=== PATIENT | female | born 1955 | race African-American/Black ===

== ENCOUNTER 2019-03-24 07:38 | Emergency (ER) | payer OTHER, MEDICAID ==
[~2019-03-24] VITALS: Ht 160 cm; Wt 75.0 kg
[2019-03-24] MEDS ORDERED: SODIUM CHLORIDE 0.9% 1,000 ML IV ONE (08:24)
[2019-03-24 08:55] LABS: EOSINOPHILS % 1.4 % (0.0-5.0); HEMATOCRIT. 37.5 % (36.0-48.0); HEMOGLOBIN. 12.3 g/dL (12.0-16.0); LYMPHOCYTES % 27.5 % (20.0-50.0); MEAN CORPUSCULAR HEMOGLOBIN 30.9 pg (28.0-32.0); MEAN PLATELET VOLUME 8.2 fl (7.4-10.4); MONOCYTES % 6.7 % (2.0-8.0); NEUTROPHILS % 63.4 % (40.0-76.0); PLATELET 229 x1000/uL (130-400); RED BLOOD CELL COUNT 3.99 mill/uL (4.2-5.4); RED CELL DISTRIBUTION WIDTH 14.7 % (11.6-14.6)
[2019-03-24 08:56] LABS: CHLORIDE 108 mEq/L (98-107)
[2019-03-24] MEDS ORDERED: FUROSEMIDE 20MG/2ML VIAL IVP ONE ×2 (10:30→11:00)
[2019-03-24 10:50] VITALS: BP 164/94
== END 2019-03-24 11:37 | disposition left against medical advice (07) ==
LOC: ER 07:38 → EDBEDREQ 10:37 → EDBEDREQTM 10:39 → ENRESERV 10:45 → CANRESERV 10:45 → ER 11:37
DX: I21.4 Non-ST elevation (NSTEMI) myocardial infarction (principal); I11.9 Hypertensive heart disease without heart failure; I50.9 Heart failure, unspecified; H53.8 Other visual disturbances; E03.9 Hypothyroidism, unspecified
CPT/HCPCS: 36415; 71045; 80053; 83880; 84484; 85025; 93005; 96361; 96374; 99284; J1940; J7030

== ENCOUNTER 2019-06-04 00:18 | Emergency (ER) | payer OTHER, MEDICAID ==
[~2019-06-04] VITALS: Ht 160 cm; Wt 75.0 kg
[2019-06-04] MEDS ORDERED: KETOROLAC 30MG/ML VIAL IV STA (01:52)
[2019-06-04] MEDS ORDERED: ONDANSETRON HCL 4MG/2ML INJ IV STA (01:52)
[2019-06-04 02:18] LABS: CHLORIDE 110 mEq/L (98-107)
[2019-06-04 02:20] LABS: BASOPHILS % 1.1 % (0.0-2.0); HEMATOCRIT. 38.5 % (36.0-48.0); HEMOGLOBIN. 12.8 g/dL (12.0-16.0); LYMPHOCYTES % 15.3 % (20.0-50.0); MEAN CORPUSCULAR HEMOGLOBIN 31.2 pg (28.0-32.0); MEAN CORPUSCULAR VOLUME 94.1 fL (81.0-99.0); MEAN PLATELET VOLUME 8.3 fl (7.4-10.4); MONOCYTES % 5.5 % (2.0-8.0); NEUTROPHILS % 77.1 % (40.0-76.0); PLATELET 230 x1000/uL (130-400); RED BLOOD CELL COUNT 4.08 mill/uL (4.2-5.4); RED CELL DISTRIBUTION WIDTH 15.4 % (11.6-14.6)
[2019-06-04 04:56] VITALS: BP 152/80
== END 2019-06-04 04:59 | disposition home or self-care (01) ==
LOC: ER 01:37
DX: M54.12 Radiculopathy, cervical region (principal)
CPT/HCPCS: 36415; 71045; 72125; 80053; 84484; 85025; 93005; 96374; 96375; 99284; J1885; J2405

== ENCOUNTER 2019-07-01 07:42 | Emergency (ER) | payer OTHER, MEDICAID ==
[~2019-07-01] VITALS: Ht 160 cm; Wt 72.0 kg
[2019-07-01] MEDS ORDERED: KETOROLAC 60MG/2ML VIAL IM ONE (08:30)
[2019-07-01 08:35] VITALS: BP 157/82
== END 2019-07-01 08:54 | disposition home or self-care (01) ==
LOC: ER 07:42
DX: M54.5 Low back pain (principal); I11.0 Hypertensive heart disease with heart failure; E78.00 Pure hypercholesterolemia, unspecified; I25.2 Old myocardial infarction; E03.9 Hypothyroidism, unspecified
CPT/HCPCS: 96372; 99283; J1885

== ENCOUNTER 2019-07-29 23:27 | Emergency (ER) | payer OTHER, MEDICAID ==
[~2019-07-29] VITALS: Ht 160 cm; Wt 75.0 kg
[2019-07-30] MEDS ORDERED: KETOROLAC 60MG/2ML VIAL IM ONE (04:45)
[2019-07-30 05:38] VITALS: BP 155/81
== END 2019-07-30 05:49 | disposition home or self-care (01) ==
LOC: ER 23:27
DX: M54.5 Low back pain (principal); G89.29 Other chronic pain
CPT/HCPCS: 96372; 99283; J1885

== ENCOUNTER 2019-08-22 04:18 | Inpatient (IN) | payer MEDICARE, MEDICAID ==
[~2019-08-22] VITALS: Ht 160 cm; Wt 75.7 kg
[2019-08-22] VITALS (9 sets, daily range): BP systolic 128–164; BP diastolic 65–82
[2019-08-22] MEDS ORDERED: ONDANSETRON HCL 4MG/2ML INJ IV STA (04:31)
[2019-08-22] MEDS ORDERED: FUROSEMIDE 40MG/4ML VIAL IV ONE (04:45)
[2019-08-22] MEDS ORDERED: NITROGLYCERIN OINT 1GM/INCH UDPKT TD ONE (04:45)
[2019-08-22 05:36] LABS: BASOPHILS % 0.7 % (0.0-2.0); EOSINOPHILS % 1.1 % (0.0-5.0); HEMATOCRIT. 35.1 % (36.0-48.0); HEMOGLOBIN. 11.5 g/dL (12.0-16.0); LYMPHOCYTES % 11.8 % (20.0-50.0); MEAN CORPUSCULAR HEMOGLOBIN 31.2 pg (28.0-32.0); MEAN CORPUSCULAR VOLUME 94.7 fL (81.0-99.0); MEAN PLATELET VOLUME 8.4 fl (7.4-10.4); MONOCYTES % 4.1 % (2.0-8.0); NEUTROPHILS % 82.3 % (40.0-76.0); PLATELET 281 x1000/uL (130-400); RED BLOOD CELL COUNT 3.71 mill/uL (4.2-5.4); RED CELL DISTRIBUTION WIDTH 15.2 % (11.6-14.6)
[2019-08-22 05:45] LABS: CHLORIDE 112 mEq/L (98-107)
[2019-08-22] MEDS ORDERED: DOCUSATE SODIUM 100MG CAPSULE PO PRN (10:00)
[2019-08-22] MEDS ORDERED: TRAMADOL 50MG TABLET PO PRN (10:00)
[2019-08-22] MEDS ORDERED: MAGNESIUM/ALUMINUM HYDROXIDE/SIMETHICONE 30ML UDC PO PRN (10:00)
[2019-08-22] MEDS ORDERED: ACETAMINOPHEN 325MG TABLET PO PRN (10:00)
[2019-08-22] MEDS ORDERED: MORPHINE SULFATE 2 MG/ML CPJ (NOT FOR IM USE) IV PRN (10:00)
[2019-08-22] MEDS ORDERED: CLONIDINE 0.1MG TABLET PO PRN (10:00)
[2019-08-22] MEDS ORDERED: ONDANSETRON HCL 4MG/2ML INJ IV PRN (10:00)
[2019-08-22] MEDS ORDERED: NITROGLYCERIN 0.4MG TABLET SL SL PRN (10:00)
[2019-08-22] MEDS ORDERED: GUAIFENESIN 200MG/10ML SUGAR FREE UDC PO PRN (10:00)
[2019-08-22] MEDS ORDERED: LORAZEPAM 0.5MG TABLET PO PRN (10:00)
[2019-08-22] MEDS: LISINOPRIL 20MG TABLET PO SCH ×2 (13:09→22:02)
[2019-08-22] MEDS: ASPIRIN 325MG EC TABLET PO SCH (13:09)
[2019-08-22] MEDS: METOPROLOL TARTRATE 25MG TABLET PO SCH ×2 (13:10→18:28)
[2019-08-22] MEDS: ENOXAPARIN 80MG/0.8ML SYR SUBCUT SCH ×2 (13:12→22:04)
[2019-08-22] MEDS ORDERED: INFLUENZA VIRUS VACCINE(AFLURIA) 0.5ML SYR IM ONE (15:00)
[2019-08-22] MEDS: AMLODIPINE 2.5MG TABLET PO SCH ×2 (15:30→22:02)
[2019-08-22 16:24] LABS: INR 1.1; PROTHROMBIN TIME 11.7 sec (9.6-11.0)
[2019-08-22] MEDS: POTASSIUM CHLORIDE 20MEQ TABLET SR PO SCH (18:30)
[2019-08-22] MEDS: FUROSEMIDE 40MG/4ML VIAL IVP SCH (18:32)
[2019-08-22] MEDS: SPIRONOLACTONE 25MG TABLET PO SCH (18:33)
[2019-08-22] MEDS ORDERED: NITR0.4T49 SL (19:48)
[2019-08-22] MEDS ORDERED: LOSA25TA26 MT (19:48)
[2019-08-22] MEDS ORDERED: ATOR10TA MT (19:48)
[2019-08-22] MEDS ORDERED: ASPI-986 MT (19:48)
[2019-08-22] MEDS ORDERED: DEXT15SY3 PO (19:48)
[2019-08-22] MEDS ORDERED: LEVO25TA2 MT (19:48)
[2019-08-22] MEDS ORDERED: ZOLPIDEM TARTRATE 5MG TABLET PO PRN (21:00)
[2019-08-22] MEDS: FAMOTIDINE 40MG TABLET PO SCH (22:02)
[2019-08-22] MEDS: IPRATROPIUM/ALBUTEROL 0.5-3(2.5)MG/3ML NEB NEB PRN (22:09)
[2019-08-23] VITALS (16 sets, daily range): BP systolic 116–149; BP diastolic 56–101
[2019-08-23 00:50] LABS: CREATINE KINASE MB FRACTION 1.5 ng/mL (0.5-3.6)
[2019-08-23] MEDS: IPRATROPIUM/ALBUTEROL 0.5-3(2.5)MG/3ML NEB NEB PRN ×2 (01:43→08:16)
[2019-08-23] MEDS: FUROSEMIDE 40MG/4ML VIAL IVP SCH ×2 (05:57→18:34)
[2019-08-23] MEDS: SPIRONOLACTONE 25MG TABLET PO SCH ×2 (05:57→18:34)
[2019-08-23 08:21] LABS: *AMPHETAMINES SCREEN URINE NEGATIVE (NEGATIVE); *BARBITURATES SCREEN URINE NEGATIVE (NEGATIVE); *BENZODIAZEPINES SCREEN URINE NEGATIVE (NEGATIVE); *COCAINE SCREEN URINE NEGATIVE (NEGATIVE); CANNABINOID URINE SCREEN NEGATIVE (NEGATIVE); METHADONE URINE SCREEN NEGATIVE (NEGATIVE); OPIATES URINE SCREEN NEGATIVE (NEGATIVE); PHENCYCLIDINE URINE SCREEN NEGATIVE (NEGATIVE)
[2019-08-23] MEDS: POTASSIUM CHLORIDE 20MEQ TABLET SR PO SCH (08:36)
[2019-08-23] MEDS: AMLODIPINE 2.5MG TABLET PO SCH ×2 (08:36→21:00)
[2019-08-23] MEDS: FAMOTIDINE 40MG TABLET PO SCH ×2 (08:36→21:53)
[2019-08-23] MEDS: ENOXAPARIN 80MG/0.8ML SYR SUBCUT SCH ×2 (08:40→21:59)
[2019-08-23] MEDS: ASPIRIN 325MG EC TABLET PO SCH (09:17)
[2019-08-23 09:38] LABS: CREATINE KINASE MB FRACTION 1.5 ng/mL (0.5-3.6)
[2019-08-23 09:48] LABS: BG BASE EXCESS 0.3 mmol/L (-2.0-2.0); BG BILEVEL POS AIRWAY PRESSURE 15/5; BG CARBOXYHEMOGLOBIN 0.3 % (0.5-1.5); BG DEOXYHEMOGLOBIN 0.5 % (0.0-5.0); BG FRACTION INSPIRED OXYGEN 100; BG HCO3 ACT 23.3 mmol/L (22.0-26.0); BG METHEMOGLOBIN 0.1 % (0.0-1.5); BG OXYGEN SATURATION 99.5 % (92.0-98.5); BG OXYHEMOGLOBIN 99.1 % (94.0-97.0); BG PCO2 32.8 mmHg (35.0-45.0); BG PO2 387.6 mmHg (75.0-100.0); BG SAMPLE SITE RIGHT RADIAL; BG TOTAL HEMOGLOBIN 12.6 g/dL (12.0-18.0); BG VENT MODE MASK - BIPAP; BG VENT RATE 16 set
[2019-08-23] MEDS: LISINOPRIL 20MG TABLET PO SCH (14:17)
[2019-08-23] MEDS: METOPROLOL TARTRATE 25MG TABLET PO SCH ×2 (17:28→21:00)
[2019-08-23] MEDS: BENZONATATE 100MG CAPSULE PO SCH (18:33)
[2019-08-24] VITALS (13 sets, daily range): BP systolic 109–159; BP diastolic 48–89
[2019-08-24] MEDS: BENZONATATE 100MG CAPSULE PO SCH ×3 (02:27→18:14)
[2019-08-24] MEDS: FUROSEMIDE 40MG/4ML VIAL IVP SCH ×3 (06:17→18:24)
[2019-08-24] MEDS: SPIRONOLACTONE 25MG TABLET PO SCH ×2 (06:18→18:14)
[2019-08-24] MEDS: ENOXAPARIN 80MG/0.8ML SYR SUBCUT SCH ×2 (09:00→21:00)
[2019-08-24] MEDS: ASPIRIN 325MG EC TABLET PO SCH (09:29)
[2019-08-24] MEDS: FAMOTIDINE 40MG TABLET PO SCH ×2 (09:33→21:00)
[2019-08-24] MEDS: AMLODIPINE 2.5MG TABLET PO SCH ×2 (09:34→21:00)
[2019-08-24] MEDS: METOPROLOL TARTRATE 25MG TABLET PO SCH ×2 (09:36→21:00)
[2019-08-24] MEDS: POTASSIUM CHLORIDE 20MEQ TABLET SR PO SCH (12:37)
[2019-08-24] MEDS: LISINOPRIL 20MG TABLET PO SCH ×3 (12:37→21:00)
[2019-08-24 14:29] LABS: EOSINOPHILS % 2.5 % (0.0-5.0); HEMATOCRIT. 39.9 % (36.0-48.0); HEMOGLOBIN. 13.2 g/dL (12.0-16.0); LYMPHOCYTES % 17.8 % (20.0-50.0); MEAN CORPUSCULAR HEMOGLOBIN 30.9 pg (28.0-32.0); MEAN CORPUSCULAR VOLUME 93.3 fL (81.0-99.0); MEAN PLATELET VOLUME 8.8 fl (7.4-10.4); NEUTROPHILS % 70.7 % (40.0-76.0); PLATELET 361 x1000/uL (130-400); RED BLOOD CELL COUNT 4.28 mill/uL (4.2-5.4); RED CELL DISTRIBUTION WIDTH 14.8 % (11.6-14.6)
[2019-08-24 14:45] LABS: CHLORIDE 101 mEq/L (98-107)
[2019-08-25] VITALS (10 sets, daily range): BP systolic 127–176; BP diastolic 60–88
[2019-08-25] MEDS: BENZONATATE 100MG CAPSULE PO SCH ×2 (01:06→10:29)
[2019-08-25] MEDS: SPIRONOLACTONE 25MG TABLET PO SCH (06:21)
[2019-08-25] MEDS: POTASSIUM CHLORIDE 20MEQ TABLET SR PO SCH (08:43)
[2019-08-25] MEDS: METOPROLOL TARTRATE 25MG TABLET PO SCH (08:43)
[2019-08-25] MEDS: ASPIRIN 325MG EC TABLET PO SCH (08:43)
[2019-08-25] MEDS: AMLODIPINE 2.5MG TABLET PO SCH (08:43)
[2019-08-25] MEDS: FAMOTIDINE 40MG TABLET PO SCH (08:44)
[2019-08-25] MEDS: LISINOPRIL 20MG TABLET PO SCH (08:44)
[2019-08-25] MEDS: ENOXAPARIN 80MG/0.8ML SYR SUBCUT SCH (08:46)
[2019-08-25] MEDS ORDERED: ATORVASTATIN CALCIUM 40MG TABLET PO SCH (11:20)
== END 2019-08-25 12:17 | disposition home or self-care (01) | DRG 280 ==
LOC: ER 04:18 → 3WST 05:21 → ENRESERV 10:14
PROVIDERS: ADMIT Internal Medicine; ATTEND Internal Medicine
PROC: 5A09357 Assistance with Respiratory Ventilation, Less than 24 Consecutive Hours, Continuous Positive Airway Pressure (ICD-10-PCS; principal; 2019-08-22)
DX: I21.4 Non-ST elevation (NSTEMI) myocardial infarction (principal); I50.43 Acute on chronic combined systolic (congestive) and diastolic (congestive) heart failure; J96.00 Acute respiratory failure, unspecified whether with hypoxia or hypercapnia; E44.1 Mild protein-calorie malnutrition; J44.1 Chronic obstructive pulmonary disease with (acute) exacerbation; I31.3 Pericardial effusion (noninflammatory); D63.8 Anemia in other chronic diseases classified elsewhere; E78.5 Hyperlipidemia, unspecified; R74.0 Nonspecific elevation of levels of transaminase and lactic acid dehydrogenase [LDH]; E03.9 Hypothyroidism, unspecified; E78.00 Pure hypercholesterolemia, unspecified; E83.51 Hypocalcemia; I11.0 Hypertensive heart disease with heart failure; I25.10 Atherosclerotic heart disease of native coronary artery without angina pectoris; Z60.2 Problems related to living alone; Z79.899 Other long term (current) drug therapy; Z68.29 Body mass index [BMI] 29.0-29.9, adult; Z91.012 Allergy to eggs; Z87.891 Personal history of nicotine dependence; Z91.11 Patient's noncompliance with dietary regimen; Z91.14 Patient's other noncompliance with medication regimen; Z79.82 Long term (current) use of aspirin
CPT/HCPCS: 36415; 36600; 71045; 80048; 80053; 80061; 80305; 82375; 82550; 82553; 82607; 82746; 82805; 83036; 83540; 83550; 83605; 83735; 83880; 84484; 85025; 85379; 87804; 93005; 93306; 93970; 94640; 97162; 97166; 99285; J1650; J1940; J2405

== ENCOUNTER 2019-08-29 02:13 | Emergency (ER) | payer MEDICARE, MEDICAID ==
[~2019-08-29] VITALS: Ht 160 cm; Wt 73.0 kg
[~2019-08-29 02:13] MED LIST: ASPI-986 MT; ATOR10TA MT; DEXT15SY3 PO; LEVO25TA2 MT; LOSA25TA26 MT; NITR0.4T49 SL
[2019-08-29 02:24] VITALS: BP 157/70
[2019-08-29] MEDS ORDERED: MORPHINE SULFATE 4 MG/ML CPJ (NOT FOR IM USE) IV STA (06:30)
[2019-08-29] MEDS ORDERED: ONDANSETRON HCL 4MG/2ML INJ IV STA (06:30)
== END 2019-08-29 07:00 | disposition left against medical advice (07) ==
LOC: ER 02:13
DX: R10.9 Unspecified abdominal pain (principal)
CPT/HCPCS: 99283

== ENCOUNTER 2019-10-05 20:42 | Emergency (ER) | payer MEDICARE, MEDICAID ==
[~2019-10-05] VITALS: Ht 162.6 cm; Wt 73.0 kg
[2019-10-05] MEDS ORDERED: ALBUTEROL (0.083%) 2.5MG/3ML NEB HHN STA (22:53)
[2019-10-05] MEDS ORDERED: IPRATROPIUM BROMIDE (0.02%) 0.5MG/2.5ML NEB HHN STA (22:53)
[2019-10-05] MEDS ORDERED: FUROSEMIDE 40MG/4ML VIAL IV ONE (23:00)
[2019-10-06 00:17] LABS: EOSINOPHILS % 0.4 % (0.0-5.0); HEMATOCRIT. 37.7 % (36.0-48.0); HEMOGLOBIN. 12.6 g/dL (12.0-16.0); LYMPHOCYTES % 13.9 % (20.0-50.0); MEAN CORPUSCULAR HEMOGLOBIN 31.7 pg (28.0-32.0); MEAN CORPUSCULAR VOLUME 94.7 fL (81.0-99.0); MONOCYTES % 6.8 % (2.0-8.0); NEUTROPHILS % 77.9 % (40.0-76.0); PLATELET 279 x1000/uL (130-400); RED BLOOD CELL COUNT 3.98 mill/uL (4.2-5.4); RED CELL DISTRIBUTION WIDTH 15.5 % (11.6-14.6)
[2019-10-06 00:26] LABS: CHLORIDE 109 mEq/L (98-107)
[2019-10-06 01:01] VITALS: BP 157/101
[2019-10-06] MEDS ORDERED: ASPIRIN 81MG TABLET PO ONE (01:15)
== END 2019-10-06 03:16 | disposition left against medical advice (07) ==
LOC: ER 20:42
DX: R06.02 Shortness of breath (principal); I10 Essential (primary) hypertension; E03.9 Hypothyroidism, unspecified; Z79.82 Long term (current) use of aspirin; Z79.899 Other long term (current) drug therapy
CPT/HCPCS: 36415; 71045; 71250; 80053; 83880; 84484; 85025; 93005; 94640; 96374; 99285; J1940

== ENCOUNTER 2019-10-25 23:46 | Emergency (ER) | payer MEDICARE, MEDICAID ==
[~2019-10-25] VITALS: Ht 160 cm; Wt 72.0 kg
[2019-10-26] MEDS ORDERED: ALBUTEROL (0.083%) 2.5MG/3ML NEB HHN STA (01:50)
[2019-10-26] MEDS ORDERED: PREDNISONE 20MG TABLET PO STA (01:50)
[2019-10-26] MEDS ORDERED: IPRATROPIUM BROMIDE (0.02%) 0.5MG/2.5ML NEB HHN STA (01:50)
[2019-10-26 06:00] VITALS: BP 142/80
== END 2019-10-26 07:02 | disposition home or self-care (01) ==
LOC: ER 23:46
DX: J44.9 Chronic obstructive pulmonary disease, unspecified (principal); R55 Syncope and collapse; E03.9 Hypothyroidism, unspecified; I11.0 Hypertensive heart disease with heart failure; I50.9 Heart failure, unspecified; Z91.012 Allergy to eggs; Z79.899 Other long term (current) drug therapy; Z86.718 Personal history of other venous thrombosis and embolism; Z98.890 Other specified postprocedural states; W18.39XA Other fall on same level, initial encounter; Y93.89 Activity, other specified; Y92.89 Other specified places as the place of occurrence of the external cause; Y99.8 Other external cause status
CPT/HCPCS: 94640; 99284

== ENCOUNTER 2019-10-27 12:52 | Emergency (ER) | payer MEDICARE, MEDICAID ==
[~2019-10-27] VITALS: Ht 160 cm; Wt 72.0 kg
[2019-10-27] MEDS ORDERED: METHYLPREDNISOLONE SOD SUCC 125 MG/2 ML VIAL IV STA (13:34)
[2019-10-27] MEDS ORDERED: ALBUTEROL (0.083%) 2.5MG/3ML NEB HHN STA (13:34)
[2019-10-27] MEDS ORDERED: IPRATROPIUM BROMIDE (0.02%) 0.5MG/2.5ML NEB HHN STA (13:34)
[2019-10-27 14:16] LABS: BASOPHILS % 1.3 % (0.0-2.0); EOSINOPHILS % 0.7 % (0.0-5.0); HEMOGLOBIN. 11.2 g/dL (12.0-16.0); LYMPHOCYTES % 11.3 % (20.0-50.0); MEAN CORPUSCULAR HEMOGLOBIN 31.4 pg (28.0-32.0); MEAN CORPUSCULAR VOLUME 94.9 fL (81.0-99.0); MEAN PLATELET VOLUME 8.3 fl (7.4-10.4); MONOCYTES % 5.9 % (2.0-8.0); NEUTROPHILS % 80.8 % (40.0-76.0); PLATELET 246 x1000/uL (130-400); RED BLOOD CELL COUNT 3.58 mill/uL (4.2-5.4)
[2019-10-27 14:19] LABS: CHLORIDE 114 mEq/L (98-107)
[2019-10-27 14:22] LABS: INR 1.1
[2019-10-27] MEDS ORDERED: FUROSEMIDE 20MG/2ML VIAL IVP ONE (15:00)
[2019-10-27] MEDS ORDERED: ASPIRIN 325MG EC TABLET PO ONE (15:00)
[2019-10-27 15:45] VITALS: BP 169/94
== END 2019-10-27 16:35 | disposition left against medical advice (07) ==
LOC: ER 13:33 → CANBEDREQ 16:44
DX: I21.4 Non-ST elevation (NSTEMI) myocardial infarction (principal); I11.0 Hypertensive heart disease with heart failure; I50.9 Heart failure, unspecified; D64.9 Anemia, unspecified; I21.9 Acute myocardial infarction, unspecified; J44.9 Chronic obstructive pulmonary disease, unspecified; Z91.012 Allergy to eggs; Z79.82 Long term (current) use of aspirin; Z79.899 Other long term (current) drug therapy
CPT/HCPCS: 36415; 71045; 80053; 83605; 83880; 84484; 85025; 85610; 93005; 94640; 96374; 96375; 99285; J1940; J2930

== ENCOUNTER 2019-10-29 14:00 | Emergency (ER) | payer MEDICARE, MEDICAID ==
[~2019-10-29] VITALS: Ht 167.6 cm; Wt 75.0 kg
[2019-10-29 17:26] LABS: BASOPHILS % 1.3 % (0.0-2.0); EOSINOPHILS % 0.6 % (0.0-5.0); HEMATOCRIT. 37.6 % (36.0-48.0); HEMOGLOBIN. 12.4 g/dL (12.0-16.0); LYMPHOCYTES % 14.2 % (20.0-50.0); MEAN CORPUSCULAR HEMOGLOBIN 30.9 pg (28.0-32.0); MEAN CORPUSCULAR VOLUME 93.9 fL (81.0-99.0); MEAN PLATELET VOLUME 8.7 fl (7.4-10.4); MONOCYTES % 6.2 % (2.0-8.0); NEUTROPHILS % 77.7 % (40.0-76.0); PLATELET 261 x1000/uL (130-400); RED CELL DISTRIBUTION WIDTH 16.3 % (11.6-14.6)
[2019-10-29 17:35] LABS: CHLORIDE 113 mEq/L (98-107)
[2019-10-29 17:49] LABS: CLARITY URINE CLEAR (CLEAR); COLOR URINE DARK YELLOW (YELLOW); KETONES URINE NEGATIVE (NEGATIVE); LEUKOCYTE ESTERASE URINE NEGATIVE (NEGATIVE); NITRITE URINE NEGATIVE (NEGATIVE); OCCULT BLOOD URINE NEGATIVE (NEGATIVE); PH URINE 5.5 (4.5-8.0); PROTEIN URINE 2+ (NEGATIVE)
[2019-10-29] MEDS ORDERED: ENOXAPARIN 100MG/ML SYR SUBCUT ONE (19:00)
[2019-10-29] MEDS ORDERED: DOCUSATE SODIUM 100MG CAPSULE PO PRN (19:00)
[2019-10-29] MEDS ORDERED: LORAZEPAM 0.5MG TABLET PO PRN (19:00)
[2019-10-29] MEDS ORDERED: ONDANSETRON HCL 4MG/2ML INJ IV PRN (19:00)
[2019-10-29] MEDS ORDERED: ASPIRIN 81MG TABLET PO ONE (19:00)
[2019-10-29] MEDS ORDERED: CLONIDINE 0.1MG TABLET PO PRN (19:00)
[2019-10-29] MEDS ORDERED: GUAIFENESIN 200MG/10ML SUGAR FREE UDC PO PRN (19:00)
[2019-10-29] MEDS ORDERED: FUROSEMIDE 40MG/4ML VIAL IV ONE (19:00)
[2019-10-29] MEDS ORDERED: NITROGLYCERIN 0.4MG TABLET SL SL PRN (19:00)
[2019-10-29] MEDS ORDERED: MORPHINE SULFATE 2 MG/ML CPJ (NOT FOR IM USE) IV PRN (19:00)
[2019-10-29] MEDS ORDERED: ZOLPIDEM TARTRATE 5MG TABLET PO PRN ×2 (19:00→21:00)
[2019-10-29] MEDS ORDERED: TRAMADOL 50MG TABLET PO PRN (19:00)
[2019-10-29] MEDS ORDERED: MAGNESIUM/ALUMINUM HYDROXIDE/SIMETHICONE 30ML UDC PO PRN (19:00)
[2019-10-29] MEDS ORDERED: IPRATROPIUM/ALBUTEROL 0.5-3(2.5)MG/3ML NEB NEB PRN (19:00)
[2019-10-29] MEDS ORDERED: ACETAMINOPHEN 325MG TABLET PO PRN ×2 (19:00)
[2019-10-29 19:40] LABS: T4 FREE 0.41 ng/dL (0.76-1.46)
[2019-10-29] MEDS ORDERED: ENOXAPARIN 80MG/0.8ML SYR SUBCUT NR (20:30)
[2019-10-29] MEDS ORDERED: FUROSEMIDE 40MG/4ML VIAL IVP SCH (21:00)
[2019-10-29] MEDS ORDERED: ATORVASTATIN CALCIUM 10MG TABLET PO SCH (21:45)
[2019-10-29] MEDS ORDERED: SPIRONOLACTONE 25MG TABLET PO SCH (21:46)
[2019-10-30] MEDS ORDERED: CARVEDILOL 3.125 MG TABLET PO SCH (06:00)
[2019-10-30 06:43] LABS: CREATINE KINASE MB FRACTION 1.8 ng/mL (0.5-3.6)
[2019-10-30] MEDS ORDERED: LEVOTHYROXINE SODIUM 112MCG TABLET PO SCH (07:50)
[2019-10-30] MEDS ORDERED: ASPIRIN 325MG EC TABLET PO SCH (09:00)
[2019-10-30] MEDS ORDERED: SPIRONOLACTONE 25MG TABLET PO SCH (09:00)
[2019-10-30] MEDS ORDERED: ENOXAPARIN 60MG/0.6ML SYR SUBCUT SCH (09:00)
[2019-10-30] MEDS ORDERED: LOSARTAN POTASSIUM 25 MG TABLET PO SCH (09:00)
[2019-10-30 10:04] LABS: *BARBITURATES SCREEN URINE NEGATIVE (NEGATIVE); *BENZODIAZEPINES SCREEN URINE NEGATIVE (NEGATIVE); *COCAINE SCREEN URINE NEGATIVE (NEGATIVE)
[2019-10-30 10:05] LABS: *AMPHETAMINES SCREEN URINE NEGATIVE (NEGATIVE); CANNABINOID URINE SCREEN NEGATIVE (NEGATIVE); OPIATES URINE SCREEN NEGATIVE (NEGATIVE); PHENCYCLIDINE URINE SCREEN NEGATIVE (NEGATIVE)
[2019-10-30 11:16] VITALS: BP 136/90
[2019-10-30] MEDS ORDERED: ATORVASTATIN CALCIUM 40MG TABLET PO SCH (21:00)
[2019-10-30] MEDS ORDERED: ATORVASTATIN CALCIUM 10MG TABLET PO SCH (21:00)
[2019-10-31 16:06] LABS: METHADONE URINE SCREEN NEGATIVE (NEGATIVE)
== END 2019-10-30 11:15 | disposition left against medical advice (07) ==
LOC: ER 14:00 → SUPCPDRO 18:58 → EDBEDREQSVC 19:02 → EDBEDREQTM 19:02 → EDBEDREQ 19:02 → CANBEDREQ 10-30 11:02 → ER 10-30 11:15
DX: I50.9 Heart failure, unspecified (principal); I42.9 Cardiomyopathy, unspecified; Z91.012 Allergy to eggs; Z79.899 Other long term (current) drug therapy; Z79.82 Long term (current) use of aspirin
CPT/HCPCS: 36415; 71045; 80053; 80061; 80305; 81003; 82550; 82553; 83036; 83880; 84439; 84443; 84484; 85025; 93005; 93970; 99285; J1650; J1940

== ENCOUNTER 2020-03-09 06:26 | Inpatient (IN) | payer MEDICARE, MEDICAID ==
[~2020-03-09] VITALS: Ht 167.6 cm; Wt 71.2 kg
[2020-03-09] MEDS ORDERED: ONDANSETRON HCL 4MG/2ML INJ IV STA (06:52)
[2020-03-09] MEDS ORDERED: MORPHINE SULFATE 4 MG/ML CPJ (NOT FOR IM USE) IV STA (06:52)
[2020-03-09 07:16] LABS: BASOPHILS % 1.2 % (0.0-2.0); EOSINOPHILS % 0.1 % (0.0-5.0); HEMATOCRIT. 39.8 % (36.0-48.0); LYMPHOCYTES % 14.1 % (20.0-50.0); MEAN CORPUSCULAR HEMOGLOBIN 31.4 pg (28.0-32.0); MEAN CORPUSCULAR VOLUME 96.4 fL (81.0-99.0); MEAN PLATELET VOLUME 9.4 fl (7.4-10.4); MONOCYTES % 5.5 % (2.0-8.0); NEUTROPHILS % 79.1 % (40.0-76.0); PLATELET 170 x1000/uL (130-400); RED BLOOD CELL COUNT 4.13 mill/uL (4.2-5.4)
[2020-03-09 07:21] LABS: CHLORIDE 113 mEq/L (98-107)
[2020-03-09 07:24] LABS: INR 1.2; PROTHROMBIN TIME 12.9 sec (9.6-11.0)
[2020-03-09] MEDS ORDERED: HYDROCODONE/ACETAMINOPHEN 10/325MG TABLET PO PRN (10:15)
[2020-03-09] MEDS ORDERED: FUROSEMIDE 40MG/4ML VIAL IVP ONE (10:15)
[2020-03-09] MEDS ORDERED: ONDANSETRON HCL 4MG/2ML INJ IV PRN (10:15)
[2020-03-09] MEDS ORDERED: ACETAMINOPHEN 325MG TABLET PO PRN (10:15)
[2020-03-09 11:00] VITALS: BP 149/94
[2020-03-09 12:00] VITALS: BP 149/94
[2020-03-09] MEDS ORDERED: FURO40TA5 PO (12:00)
[2020-03-09] MEDS ORDERED: FAMO-133 MT (12:00)
[2020-03-09] MEDS ORDERED: SPIR25TA6 MT (12:00)
[2020-03-09] MEDS ORDERED: CARV6.2548 MT (12:00)
[2020-03-09] MEDS ORDERED: SACU1TAB MT (12:00)
[2020-03-09] MEDS: ENOXAPARIN 40MG/0.4ML SYR SUBCUT SCH (12:59)
[2020-03-09] MEDS: POTASSIUM CHLORIDE 20MEQ TABLET SR PO SCH (13:00)
[2020-03-09] MEDS: LEVOTHYROXINE SODIUM 50MCG TABLET PO SCH (15:16)
[2020-03-09 16:00] VITALS: BP 143/85
[2020-03-09] MEDS: FUROSEMIDE 40MG/4ML VIAL IVP SCH (16:28)
[2020-03-09] MEDS: MORPHINE SULFATE 2 MG/ML CPJ (NOT FOR IM USE) IV PRN ×2 (16:54→21:05)
[2020-03-09 20:00] VITALS: BP 124/79
[2020-03-09] MEDS: ATORVASTATIN CALCIUM 40MG TABLET PO SCH (21:04)
[2020-03-09] MEDS: CARVEDILOL 6.25 MG TABLET PO SCH (21:04)
[2020-03-09] MEDS ORDERED: IOHEXOL-300 100 ML BOTTLE ONE (21:58)
[2020-03-10] VITALS (7 sets, daily range): BP systolic 112–133; BP diastolic 59–85
[2020-03-10] MEDS: LEVOTHYROXINE SODIUM 50MCG TABLET PO SCH (06:20)
[2020-03-10] MEDS: POTASSIUM CHLORIDE 20MEQ TABLET SR PO SCH (08:35)
[2020-03-10] MEDS: FUROSEMIDE 40MG/4ML VIAL IVP SCH ×2 (08:35→17:19)
[2020-03-10] MEDS: ASPIRIN 81MG TABLET PO SCH (08:35)
[2020-03-10] MEDS: CARVEDILOL 6.25 MG TABLET PO SCH ×2 (08:36→20:58)
[2020-03-10] MEDS: LOSARTAN POTASSIUM 25 MG TABLET PO SCH (08:36)
[2020-03-10 09:53] LABS: BASOPHILS % 0.8 % (0.0-2.0); EOSINOPHILS % 0.4 % (0.0-5.0); HEMATOCRIT. 41.9 % (36.0-48.0); HEMOGLOBIN. 13.7 g/dL (12.0-16.0); LYMPHOCYTES % 11.9 % (20.0-50.0); MEAN CORPUSCULAR HEMOGLOBIN 32.1 pg (28.0-32.0); MEAN CORPUSCULAR VOLUME 98.3 fL (81.0-99.0); MONOCYTES % 7.4 % (2.0-8.0); NEUTROPHILS % 79.5 % (40.0-76.0); PLATELET 168 x1000/uL (130-400); RED BLOOD CELL COUNT 4.26 mill/uL (4.2-5.4); RED CELL DISTRIBUTION WIDTH 16.9 % (11.6-14.6)
[2020-03-10] MEDS: DOBUTAMINE 250MG PREMIX 250 ML IV SCH ×2 (13:05→20:59)
[2020-03-10] MEDS: ENOXAPARIN 40MG/0.4ML SYR SUBCUT SCH (13:20)
[2020-03-10 18:57] LABS: CLARITY URINE CLEAR (CLEAR); COLOR URINE YELLOW (YELLOW); KETONES URINE NEGATIVE (NEGATIVE); LEUKOCYTE ESTERASE URINE NEGATIVE (NEGATIVE); NITRITE URINE NEGATIVE (NEGATIVE); OCCULT BLOOD URINE NEGATIVE (NEGATIVE); PROTEIN URINE NEGATIVE (NEGATIVE); SPECIFIC GRAVITY URINE 1.011 (1.005-1.030); UROBILINOGEN URINE 0.2 E.U./dL (0.2-1.0)
[2020-03-10] MEDS ORDERED: IPRATROPIUM/ALBUTEROL 0.5-3(2.5)MG/3ML NEB HHN PRN (19:15)
[2020-03-10] MEDS: ATORVASTATIN CALCIUM 40MG TABLET PO SCH (20:57)
[2020-03-11] VITALS (11 sets, daily range): BP systolic 106–144; BP diastolic 64–78
[2020-03-11] MEDS: DOBUTAMINE 250MG PREMIX 250 ML IV SCH ×4 (03:49→23:46)
[2020-03-11 06:41] LABS: BASOPHILS % 0.2 % (0.0-2.0); EOSINOPHILS % 0.7 % (0.0-5.0); HEMATOCRIT. 38.7 % (36.0-48.0); HEMOGLOBIN. 12.7 g/dL (12.0-16.0); LYMPHOCYTES % 12.8 % (20.0-50.0); MEAN CORPUSCULAR HEMOGLOBIN 31.8 pg (28.0-32.0); MEAN CORPUSCULAR VOLUME 96.7 fL (81.0-99.0); MEAN PLATELET VOLUME 9.5 fl (7.4-10.4); MONOCYTES % 8.2 % (2.0-8.0); NEUTROPHILS % 78.1 % (40.0-76.0); PLATELET 159 x1000/uL (130-400); RED CELL DISTRIBUTION WIDTH 16.9 % (11.6-14.6)
[2020-03-11 07:08] LABS: CHLORIDE 103 mEq/L (98-107)
[2020-03-11 07:18] LABS: CREATINE KINASE 135 IU/L (26-192)
[2020-03-11] MEDS: FUROSEMIDE 40MG/4ML VIAL IVP SCH ×2 (08:16→16:54)
[2020-03-11] MEDS: ASPIRIN 81MG TABLET PO SCH (08:16)
[2020-03-11] MEDS: LOSARTAN POTASSIUM 25 MG TABLET PO SCH (08:16)
[2020-03-11] MEDS: LEVOTHYROXINE SODIUM 50MCG TABLET PO SCH (08:16)
[2020-03-11] MEDS: POTASSIUM CHLORIDE 20MEQ TABLET SR PO SCH (08:16)
[2020-03-11] MEDS: CARVEDILOL 6.25 MG TABLET PO SCH ×2 (08:17→20:59)
[2020-03-11] MEDS ORDERED: POTASSIUM CHLORIDE 20MEQ TABLET SR PO SCH (08:45)
[2020-03-11] MEDS ORDERED: DOPAMINE 800MG PREMIX (DOUBLE) 250 ML IV SCH (12:00)
[2020-03-11] MEDS: ENOXAPARIN 40MG/0.4ML SYR SUBCUT SCH (14:02)
[2020-03-11] MEDS: IPRATROPIUM/ALBUTEROL 0.5-3(2.5)MG/3ML NEB HHN SCH (20:33)
[2020-03-11] MEDS: ATORVASTATIN CALCIUM 40MG TABLET PO SCH (20:59)
[2020-03-12] VITALS (7 sets, daily range): BP systolic 123–134; BP diastolic 67–79
[2020-03-12] MEDS: IPRATROPIUM/ALBUTEROL 0.5-3(2.5)MG/3ML NEB HHN SCH ×2 (02:47→09:39)
[2020-03-12] MEDS: DOBUTAMINE 250MG PREMIX 250 ML IV SCH (06:05)
[2020-03-12 08:26] LABS: BASOPHILS % 0.7 % (0.0-2.0); EOSINOPHILS % 1.2 % (0.0-5.0); HEMATOCRIT. 43.2 % (36.0-48.0); HEMOGLOBIN. 14.3 g/dL (12.0-16.0); LYMPHOCYTES % 16.5 % (20.0-50.0); MEAN CORPUSCULAR VOLUME 96.3 fL (81.0-99.0); MEAN PLATELET VOLUME 9.1 fl (7.4-10.4); MONOCYTES % 8.9 % (2.0-8.0); NEUTROPHILS % 72.7 % (40.0-76.0); PLATELET 180 x1000/uL (130-400); RED BLOOD CELL COUNT 4.48 mill/uL (4.2-5.4); RED CELL DISTRIBUTION WIDTH 16.7 % (11.6-14.6)
[2020-03-12 08:55] LABS: CHLORIDE 98 mEq/L (98-107)
[2020-03-12 09:00] LABS: PHOSPHORUS 2.1 mg/dL (2.5-4.9)
[2020-03-12] MEDS: FUROSEMIDE 40MG/4ML VIAL IVP SCH (09:00)
[2020-03-12] MEDS: CARVEDILOL 6.25 MG TABLET PO SCH (09:01)
[2020-03-12] MEDS: POTASSIUM CHLORIDE 20MEQ TABLET SR PO SCH (09:01)
[2020-03-12] MEDS: ASPIRIN 81MG TABLET PO SCH (09:01)
[2020-03-12] MEDS: LEVOTHYROXINE SODIUM 50MCG TABLET PO SCH (09:02)
[2020-03-12] MEDS: LOSARTAN POTASSIUM 25 MG TABLET PO SCH (09:06)
[2020-03-12] MEDS ORDERED: POTASSIUM CHLORIDE 20MEQ TABLET SR PO NR (09:15)
[2020-03-12] MEDS ORDERED: SODIUM PHOS,M-BASIC-D-BASIC 15 MM in DEXT 5% WATER 245 ML IV NR (11:00)
[2020-03-12] MEDS ORDERED: FUROSEMIDE 40MG TABLET PO SCH (11:15)
[2020-03-12] MEDS ORDERED: BUDESONIDE 0.5MG/2ML NEB HHN SCH (11:30)
[2020-03-12] MEDS ORDERED: DOPAMINE HCL 800 MG in SODIUM CHLORIDE 0.9% 240 ML IV SCH (12:00)
== END 2020-03-12 13:30 | disposition left against medical advice (07) | DRG 551 ==
LOC: ER 06:26 → 5WST 09:12 → ENRESERV 09:44 → 5EST 03-10 12:30
PROVIDERS: ADMIT Family Medicine Adult Medicine; ATTEND Family Medicine Adult Medicine
DX: S32.011A Stable burst fracture of first lumbar vertebra, initial encounter for closed fracture (principal); I50.23 Acute on chronic systolic (congestive) heart failure; N17.0 Acute kidney failure with tubular necrosis; J96.20 Acute and chronic respiratory failure, unspecified whether with hypoxia or hypercapnia; I42.0 Dilated cardiomyopathy; I13.0 Hypertensive heart and chronic kidney disease with heart failure and stage 1 through stage 4 chronic kidney disease, or unspecified chronic kidney disease; E03.9 Hypothyroidism, unspecified; E87.8 Other disorders of electrolyte and fluid balance, not elsewhere classified; J44.9 Chronic obstructive pulmonary disease, unspecified; E78.5 Hyperlipidemia, unspecified; I27.21 Secondary pulmonary arterial hypertension; N18.2 Chronic kidney disease, stage 2 (mild); D25.9 Leiomyoma of uterus, unspecified; E78.00 Pure hypercholesterolemia, unspecified; I07.1 Rheumatic tricuspid insufficiency; I25.10 Atherosclerotic heart disease of native coronary artery without angina pectoris; M43.16 Spondylolisthesis, lumbar region; M16.12 Unilateral primary osteoarthritis, left hip; M41.9 Scoliosis, unspecified; M47.816 Spondylosis without myelopathy or radiculopathy, lumbar region; Z53.21 Procedure and treatment not carried out due to patient leaving prior to being seen by health care provider; E87.6 Hypokalemia; I71.2 Thoracic aortic aneurysm, without rupture; M19.90 Unspecified osteoarthritis, unspecified site; W18.39XA Other fall on same level, initial encounter; Z82.49 Family history of ischemic heart disease and other diseases of the circulatory system; Z87.891 Personal history of nicotine dependence; Z99.81 Dependence on supplemental oxygen; Z79.899 Other long term (current) drug therapy; Z91.012 Allergy to eggs; Z79.82 Long term (current) use of aspirin; Y93.89 Activity, other specified; Y92.89 Other specified places as the place of occurrence of the external cause; Y99.8 Other external cause status
CPT/HCPCS: 36415; 71045; 71250; 72148; 74176; 76770; 80048; 80053; 81003; 82550; 83735; 84100; 84484; 85025; 93005; 93306; 93970; 94640; 99285; J1250; J1265; J1650; J1940; J2270; J2405; J3490; J7050; J7060; Q9967

== ENCOUNTER 2020-08-12 01:17 | Inpatient (IN) | payer MEDICARE, MEDICAID ==
[~2020-08-12] VITALS: Ht 162.6 cm; Wt 61.7 kg
[~2020-08-12 01:17] MED LIST changes: -ATOR10TA MT; +CARV6.2548 MT; -DEXT15SY3 PO; +FAMO-133 MT; +FURO40TA5 PO; -LOSA25TA26 MT; +SACU1TAB MT; +SPIR25TA6 MT
[2020-08-12] MEDS ORDERED: ALBUTEROL (0.083%) 2.5MG/3ML NEB HHN STA (01:52)
[2020-08-12] MEDS ORDERED: PREDNISONE 20MG TABLET PO STA (01:52)
[2020-08-12] MEDS ORDERED: IPRATROPIUM BROMIDE (0.02%) 0.5MG/2.5ML NEB HHN STA (01:52)
[2020-08-12 03:09] LABS: BASOPHILS % 1.3 % (0.0-2.0); EOSINOPHILS % 0.7 % (0.0-5.0); HEMATOCRIT. 34.3 % (36.0-48.0); HEMOGLOBIN. 11.6 g/dL (12.0-16.0); LYMPHOCYTES % 14.8 % (20.0-50.0); MEAN CORPUSCULAR HEMOGLOBIN 32.5 pg (28.0-32.0); MEAN CORPUSCULAR VOLUME 95.9 fL (81.0-99.0); NEUTROPHILS % 78.2 % (40.0-76.0); PLATELET 263 x1000/uL (130-400); RED BLOOD CELL COUNT 3.58 mill/uL (4.2-5.4); RED CELL DISTRIBUTION WIDTH 15.5 % (11.6-14.6)
[2020-08-12 03:10] LABS: BG BASE EXCESS -2.9 mmol/L (-2.0-2.0); BG CARBOXYHEMOGLOBIN 0.3 % (0.5-1.5); BG FRACTION INSPIRED OXYGEN 28; BG HCO3 ACT 19.6 mmol/L (22.0-26.0); BG METHEMOGLOBIN 0.2 % (0.0-1.5); BG OXYHEMOGLOBIN 97.5 % (94.0-97.0); BG PCO2 27.5 mmHg (35.0-45.0); BG PH 7.471 (7.350-7.450); BG PO2 114.5 mmHg (75.0-100.0); BG SAMPLE SITE LEFT RADIAL; BG TOTAL HEMOGLOBIN 11.9 g/dL (12.0-18.0); BG VENT MODE NASAL CANNULA
[2020-08-12 03:14] LABS: CHLORIDE 114 mEq/L (98-107)
[2020-08-12] MEDS ORDERED: GUAIFENESIN 200MG/10ML SUGAR FREE UDC PO PRN (06:30)
[2020-08-12] MEDS ORDERED: KETOROLAC 15MG/ML VIAL IV PRN (06:30)
[2020-08-12] MEDS ORDERED: NOREPINEPHRINE 8 MG in DEXT 5% WATER 242 ML IV PRN (06:30)
[2020-08-12] MEDS ORDERED: CLONIDINE 0.1MG TABLET PO PRN (06:30)
[2020-08-12] MEDS ORDERED: NITROGLYCERIN 0.4MG TABLET SL SL PRN (06:30)
[2020-08-12] MEDS ORDERED: MAGNESIUM/ALUMINUM HYDROXIDE/SIMETHICONE 30ML UDC PO PRN (06:30)
[2020-08-12] MEDS ORDERED: ALBUTEROL 6.7GM HFA INHALER ORI PRN (06:30)
[2020-08-12] MEDS ORDERED: DOCUSATE SODIUM 100MG CAPSULE PO PRN (06:30)
[2020-08-12] MEDS ORDERED: ZOLPIDEM TARTRATE 5MG TABLET PO PRN (06:30)
[2020-08-12] MEDS ORDERED: ONDANSETRON HCL 4MG/2ML INJ IV PRN (06:30)
[2020-08-12] MEDS ORDERED: ACETAMINOPHEN 325MG TABLET PO PRN ×2 (06:30)
[2020-08-12] MEDS ORDERED: TRAMADOL 50MG TABLET PO PRN (06:30)
[2020-08-12 08:20] LABS: FOLIC ACID (FOLATE) SERUM >20 ng/mL ng/mL (>5.38)
[2020-08-12] MEDS ORDERED: FUROSEMIDE 40MG/4ML VIAL IVP SCH ×3 (09:00→09:10)
[2020-08-12] MEDS ORDERED: LIDOCAINE HCL/PF 1% 2ML VIAL ONE (09:00)
[2020-08-12 09:07] LABS: VITAMIN B12 SERUM 626 pg/mL (211-911)
[2020-08-12 10:22] LABS: INR 1.2
[2020-08-12] MEDS: ASCORBIC ACID 500 MG TABLET PO SCH ×2 (11:00→22:44)
[2020-08-12] MEDS: GUAIFENESIN/DM 600MG/30MG ER TAB 12HR PO SCH ×2 (11:00→22:44)
[2020-08-12] MEDS: LISINOPRIL 20MG TABLET PO SCH ×2 (11:00→22:44)
[2020-08-12] MEDS: SPIRONOLACTONE 25MG TABLET PO SCH ×2 (11:00→22:43)
[2020-08-12] MEDS: FAMOTIDINE 20MG TABLET PO SCH ×2 (11:00→22:44)
[2020-08-12] MEDS: ZINC SULFATE 220 MG ( 50 ) CAPSULE PO SCH (11:00)
[2020-08-12] MEDS: FUROSEMIDE 40MG/4ML VIAL IVP SCH ×2 (11:00→17:38)
[2020-08-12] MEDS: ENOXAPARIN 60MG/0.6ML SYR SUBCUT SCH ×2 (11:00→22:44)
[2020-08-12] MEDS: ASPIRIN 325MG EC TABLET PO SCH (11:00)
[2020-08-12] MEDS: ALBUTEROL 6.7GM HFA INHALER ORI SCH ×2 (14:38→21:25)
[2020-08-12 15:51] LABS: CREATINE KINASE MB FRACTION 2.5 ng/mL (0.5-3.6)
[2020-08-12] MEDS: CARVEDILOL 3.125 MG TABLET PO SCH (18:04)
[2020-08-13] MEDS: ALBUTEROL 6.7GM HFA INHALER ORI SCH (01:00)
[2020-08-13] MEDS: ENOXAPARIN 60MG/0.6ML SYR SUBCUT SCH ×2 (09:00→20:16)
[2020-08-13] MEDS: SPIRONOLACTONE 25MG TABLET PO SCH ×2 (09:00→20:19)
[2020-08-13] MEDS: ASCORBIC ACID 500 MG TABLET PO SCH ×2 (09:00→20:19)
[2020-08-13] MEDS: CARVEDILOL 3.125 MG TABLET PO SCH ×2 (10:32→18:04)
[2020-08-13] MEDS: FAMOTIDINE 20MG TABLET PO SCH ×2 (11:01→20:19)
[2020-08-13] MEDS: GUAIFENESIN/DM 600MG/30MG ER TAB 12HR PO SCH ×2 (11:01→20:19)
[2020-08-13] MEDS: ZINC SULFATE 220 MG ( 50 ) CAPSULE PO SCH (11:01)
[2020-08-13 12:00] VITALS: BP_SYST 135; BP_SYST 137; BP_DIAS 76; BP_DIAS 84
[2020-08-13 16:00] VITALS: BP 126/78
[2020-08-13] MEDS: ASPIRIN 325MG EC TABLET PO SCH (16:58)
[2020-08-13] MEDS: FUROSEMIDE 40MG/4ML VIAL IVP SCH (17:00)
[2020-08-13 20:00] VITALS: BP 116/73
[2020-08-13 20:30] LABS: BASOPHILS % 0.9 % (0.0-2.0); EOSINOPHILS % 2.4 % (0.0-5.0); HEMATOCRIT. 33.9 % (36.0-48.0); HEMOGLOBIN. 10.9 g/dL (12.0-16.0); MEAN CORPUSCULAR HEMOGLOBIN 31.2 pg (28.0-32.0); MEAN CORPUSCULAR VOLUME 96.6 fL (81.0-99.0); MEAN PLATELET VOLUME 8.5 fl (7.4-10.4); MONOCYTES % 6.4 % (2.0-8.0); NEUTROPHILS % 75.3 % (40.0-76.0); PLATELET 247 x1000/uL (130-400); RED BLOOD CELL COUNT 3.51 mill/uL (4.2-5.4); RED CELL DISTRIBUTION WIDTH 15.5 % (11.6-14.6)
[2020-08-13 20:50] LABS: CHLORIDE 106 mEq/L (98-107)
[2020-08-13 20:57] LABS: PHOSPHORUS 3.9 mg/dL (2.5-4.9)
[2020-08-14] VITALS: BP 117/78
[2020-08-14 04:00] VITALS: BP 125/71
[2020-08-14] MEDS: CARVEDILOL 3.125 MG TABLET PO SCH (06:00)
[2020-08-14 08:00] VITALS: BP 130/75
[2020-08-14 08:27] LABS: HEMATOCRIT. 34.2 % (36.0-48.0); HEMOGLOBIN. 11.2 g/dL (12.0-16.0); MEAN CORPUSCULAR HEMOGLOBIN 31.4 pg (28.0-32.0); MEAN CORPUSCULAR VOLUME 95.5 fL (81.0-99.0); MEAN PLATELET VOLUME 8.3 fl (7.4-10.4); PLATELET 273 x1000/uL (130-400); RED BLOOD CELL COUNT 3.58 mill/uL (4.2-5.4); RED CELL DISTRIBUTION WIDTH 15.4 % (11.6-14.6)
[2020-08-14] MEDS ORDERED: LEVOTHYROXINE SODIUM 25MCG TABLET PO SCH (08:30)
[2020-08-14] MEDS: FUROSEMIDE 40MG/4ML VIAL IVP SCH (08:34)
[2020-08-14] MEDS: ENOXAPARIN 60MG/0.6ML SYR SUBCUT SCH ×2 (08:35→08:48)
[2020-08-14] MEDS: SPIRONOLACTONE 25MG TABLET PO SCH (08:35)
[2020-08-14] MEDS: ASPIRIN 325MG EC TABLET PO SCH (08:35)
[2020-08-14] MEDS: FAMOTIDINE 20MG TABLET PO SCH (08:36)
[2020-08-14] MEDS: GUAIFENESIN/DM 600MG/30MG ER TAB 12HR PO SCH (08:36)
[2020-08-14] MEDS: ASCORBIC ACID 500 MG TABLET PO SCH (08:36)
[2020-08-14] MEDS: ZINC SULFATE 220 MG ( 50 ) CAPSULE PO SCH (08:47)
[2020-08-14] MEDS ORDERED: LISINOPRIL 20MG TABLET PO SCH (09:00)
[2020-08-14 12:00] VITALS: BP 128/80
[2020-08-14 13:40] VITALS: BP 138/74
[2020-08-14 14:31] LABS: PLATELET ESTIMATE NORMAL
[2020-08-14 16:00] VITALS: BP 139/70
== END 2020-08-14 16:20 | disposition home or self-care (01) | DRG 280 ==
LOC: ER 01:17 → EDBEDREQTM 06:02 → EDBEDREQ 06:02 → 5EST 08-13 05:55 → ENRESERV 08-13 09:09
PROVIDERS: ADMIT Internal Medicine; ATTEND Internal Medicine
DX: I11.0 Hypertensive heart disease with heart failure (principal); I21.4 Non-ST elevation (NSTEMI) myocardial infarction; J96.01 Acute respiratory failure with hypoxia; E87.3 Alkalosis; J44.1 Chronic obstructive pulmonary disease with (acute) exacerbation; E03.9 Hypothyroidism, unspecified; I50.43 Acute on chronic combined systolic (congestive) and diastolic (congestive) heart failure; I42.0 Dilated cardiomyopathy; E78.00 Pure hypercholesterolemia, unspecified; E78.5 Hyperlipidemia, unspecified; F17.210 Nicotine dependence, cigarettes, uncomplicated; I08.1 Rheumatic disorders of both mitral and tricuspid valves; I27.20 Pulmonary hypertension, unspecified; I71.9 Aortic aneurysm of unspecified site, without rupture; R74.01 Elevation of levels of liver transaminase levels; E80.6 Other disorders of bilirubin metabolism; Z20.828 Contact with and (suspected) exposure to other viral communicable diseases; Z79.899 Other long term (current) drug therapy; Z91.012 Allergy to eggs; K74.60 Unspecified cirrhosis of liver
CPT/HCPCS: 36415; 36600; 71045; 80048; 80053; 80061; 82375; 82550; 82553; 82607; 82746; 82805; 83036; 83540; 83550; 83605; 83615; 83880; 84100; 84145; 84484; 85025; 93005; 93970; 99285; C9803; J1650; J1940; J2405; J3490; J7512; U0003

== ENCOUNTER 2020-08-29 23:07 | Emergency (ER) | payer MEDICARE, MEDICAID ==
[~2020-08-29] VITALS: Ht 162.6 cm; Wt 60.0 kg
[~2020-08-29 23:07] MED LIST changes: -FURO40TA5 PO; -SACU1TAB MT; -SPIR25TA6 MT
[2020-08-30] MEDS ORDERED: ASPIRIN 81MG TABLET PO ONE (01:30)
[2020-08-30 02:46] LABS: BASOPHILS % 0.9 % (0.0-2.0); EOSINOPHILS % 0.8 % (0.0-5.0); HEMATOCRIT. 36.7 % (36.0-48.0); MEAN CORPUSCULAR HEMOGLOBIN 31.5 pg (28.0-32.0); MEAN CORPUSCULAR VOLUME 95.8 fL (81.0-99.0); MEAN PLATELET VOLUME 8.2 fl (7.4-10.4); MONOCYTES % 7.3 % (2.0-8.0); PLATELET 268 x1000/uL (130-400); RED BLOOD CELL COUNT 3.83 mill/uL (4.2-5.4); RED CELL DISTRIBUTION WIDTH 16.1 % (11.6-14.6)
[2020-08-30 02:52] LABS: CHLORIDE 111 mEq/L (98-107)
[2020-08-30] MEDS ORDERED: FUROSEMIDE 40MG TABLET PO NR (04:45)
[2020-08-30 05:42] VITALS: BP 148/87
[2020-08-30] MEDS ORDERED: ASPIRIN 81MG TABLET PO NR (05:45)
== END 2020-08-30 05:45 | disposition home or self-care (01) ==
LOC: ER 23:07
DX: I11.0 Hypertensive heart disease with heart failure (principal); I50.9 Heart failure, unspecified; J44.9 Chronic obstructive pulmonary disease, unspecified
CPT/HCPCS: 36415; 71045; 80053; 83880; 84484; 85025; 93005; 99285

== ENCOUNTER 2020-09-04 01:27 | Emergency (ER) | payer MEDICARE, MEDICAID ==
[~2020-09-04] VITALS: Ht 162.6 cm; Wt 57.0 kg
[2020-09-04 04:20] LABS: BASOPHILS % 0.8 % (0.0-2.0); EOSINOPHILS % 0.7 % (0.0-5.0); HEMATOCRIT. 36.4 % (36.0-48.0); HEMOGLOBIN. 11.9 g/dL (12.0-16.0); LYMPHOCYTES % 17.5 % (20.0-50.0); MEAN CORPUSCULAR HEMOGLOBIN 31.8 pg (28.0-32.0); MEAN CORPUSCULAR VOLUME 97.1 fL (81.0-99.0); MONOCYTES % 4.4 % (2.0-8.0); NEUTROPHILS % 76.6 % (40.0-76.0); PLATELET 231 x1000/uL (130-400); RED BLOOD CELL COUNT 3.75 mill/uL (4.2-5.4); RED CELL DISTRIBUTION WIDTH 16.3 % (11.6-14.6)
[2020-09-04 04:24] LABS: CHLORIDE 110 mEq/L (98-107)
[2020-09-04 05:53] VITALS: BP 141/97
== END 2020-09-04 05:54 | disposition home or self-care (01) ==
LOC: ER 01:27
DX: I11.0 Hypertensive heart disease with heart failure (principal); I50.9 Heart failure, unspecified; J44.9 Chronic obstructive pulmonary disease, unspecified; E78.00 Pure hypercholesterolemia, unspecified
CPT/HCPCS: 36415; 71045; 80053; 83880; 84484; 85025; 93005; 99285

== ENCOUNTER 2020-09-06 23:28 | Emergency (ER) | payer MEDICARE, MEDICAID ==
[~2020-09-06] VITALS: Ht 167.6 cm; Wt 57.0 kg
[2020-09-06 23:56] VITALS: BP 179/95
[2020-09-07] MEDS ORDERED: FUROSEMIDE 100MG/10ML VIAL IM ONE (00:45)
[2020-09-07] MEDS ORDERED: FUROSEMIDE 40MG TABLET PO SCH (02:30)
[2020-09-07] MEDS ORDERED: ACETAMINOPHEN 325MG TABLET PO ONE (02:45)
== END 2020-09-07 02:53 | disposition home or self-care (01) ==
LOC: ER 23:35
DX: M79.606 Pain in leg, unspecified (principal); G89.29 Other chronic pain; M54.5 Low back pain; I11.0 Hypertensive heart disease with heart failure; I50.9 Heart failure, unspecified; J44.1 Chronic obstructive pulmonary disease with (acute) exacerbation; Z91.012 Allergy to eggs; Z79.82 Long term (current) use of aspirin
CPT/HCPCS: 93005; 99283; J1940

== ENCOUNTER 2022-02-19 20:48 | Inpatient (IN) | payer MEDICARE, MEDICAID ==
[~2022-02-19] VITALS: Ht 162.6 cm; Wt 65.0 kg
[~2022-02-19 20:48] MED LIST changes: +ASPI-1406 PO; -ASPI-986 MT; +ATOR-2 PO; +CARV3.1242 PO; -CARV6.2548 MT; +DAPA10TA PO; -FAMO-133 MT; +FAMO-287 MT; +FURO40TA5 PO; +LEVO125T MT; -LEVO25TA2 MT; +P20 PO; +SACU1TAB PO; +SPIR25TA6 PO; +UMEC1DIS IH
[2022-02-20 01:21] LABS: BASOPHILS % 1.3 % (0.0-2.0); EOSINOPHILS % 1.5 % (0.0-5.0); HEMATOCRIT. 47.3 % (36.0-48.0); HEMOGLOBIN. 15.3 g/dL (12.0-16.0); LYMPHOCYTES % 12.8 % (20.0-50.0); MEAN CORPUSCULAR HEMOGLOBIN 31.9 pg (28.0-32.0); MEAN CORPUSCULAR VOLUME 98.4 fL (81.0-99.0); MEAN PLATELET VOLUME 8.7 fl (7.4-10.4); MONOCYTES % 6.8 % (2.0-8.0); NEUTROPHILS % 77.6 % (40.0-76.0); PLATELET 243 x1000/uL (130-400); RED BLOOD CELL COUNT 4.81 mill/uL (4.2-5.4); RED CELL DISTRIBUTION WIDTH 15.8 % (11.6-14.6)
[2022-02-20 01:41] LABS: CHLORIDE 103 mEq/L (98-107)
[2022-02-20 16:08] VITALS: BP 138/79
== END 2022-02-20 17:07 | disposition home or self-care (01) | DRG 880 ==
LOC: ER 20:48 → MICUSO 20:50
PROVIDERS: ADMIT Internal Medicine; ATTEND Internal Medicine
DX: F41.1 Generalized anxiety disorder (principal); I50.22 Chronic systolic (congestive) heart failure; I11.0 Hypertensive heart disease with heart failure; E78.00 Pure hypercholesterolemia, unspecified; J44.9 Chronic obstructive pulmonary disease, unspecified; E03.9 Hypothyroidism, unspecified; Z99.81 Dependence on supplemental oxygen; Z88.8 Allergy status to other drugs, medicaments and biological substances; Z79.899 Other long term (current) drug therapy
CPT/HCPCS: 36415; 71045; 80053; 83880; 84484; 85025; 87426; 93005; 99285

== ENCOUNTER 2022-02-27 00:16 | Inpatient (IN) | payer MEDICARE, MEDICAID ==
[~2022-02-27] VITALS: Ht 162.6 cm; Wt 63.5 kg
[2022-02-27 03:50] LABS: EOSINOPHILS % 1.1 % (0.0-5.0); LYMPHOCYTES % 13.3 % (20.0-50.0); MEAN CORPUSCULAR HEMOGLOBIN 31.5 pg (28.0-32.0); MEAN CORPUSCULAR VOLUME 96.7 fL (81.0-99.0); MEAN PLATELET VOLUME 8.4 fl (7.4-10.4); MONOCYTES % 6.8 % (2.0-8.0); NEUTROPHILS % 77.8 % (40.0-76.0); PLATELET 234 x1000/uL (130-400); RED BLOOD CELL COUNT 3.82 mill/uL (4.2-5.4); RED CELL DISTRIBUTION WIDTH 15.6 % (11.6-14.6)
[2022-02-27 04:01] LABS: CHLORIDE 110 mEq/L (98-107)
[2022-02-27 04:10] LABS: ETHANOL BLOOD < 10 mg/dL
[2022-02-27] MEDS ORDERED: IPRATROPIUM BROMIDE (0.02%) 0.5MG/2.5ML NEB HHN STA (06:32)
[2022-02-27] MEDS ORDERED: ALBUTEROL (0.083%) 2.5MG/3ML NEB HHN STA (06:32)
[2022-02-27] MEDS ORDERED: NITROGLYCERIN 0.4MG TABLET SL SL PRN (06:45)
[2022-02-27] MEDS ORDERED: ASPIRIN 81MG TABLET PO ONE (06:45)
[2022-02-27] MEDS ORDERED: IPRATROPIUM/ALBUTEROL 0.5-3(2.5)MG/3ML NEB ONE (08:10)
[2022-02-27] MEDS ORDERED: FUROSEMIDE 40MG/4ML VIAL IVP ONE (08:45)
[2022-02-27] MEDS ORDERED: ENOXAPARIN 60MG/0.6ML SYR SUBCUT ONE (08:45)
[2022-02-27] MEDS ORDERED: DOCUSATE SODIUM 100MG CAPSULE PO PRN (16:15)
[2022-02-27] MEDS ORDERED: CLONIDINE 0.1MG TABLET PO PRN (16:15)
[2022-02-27] MEDS ORDERED: ONDANSETRON HCL 4MG/2ML INJ IV PRN (16:15)
[2022-02-27] MEDS ORDERED: NA PHOS,M-B/NA PHOS,DI-BA ENEMA 118ML PR PRN (16:15)
[2022-02-27] MEDS ORDERED: HYDROCODONE/ACETAMINOPHEN 5/325MG TABLET PO PRN (16:15)
[2022-02-27] MEDS ORDERED: GUAIFENESIN 200MG/10ML SUGAR FREE UDC PO PRN (16:15)
[2022-02-27] MEDS ORDERED: MAGNESIUM/ALUMINUM HYDROXIDE/SIMETHICONE 30ML UDC PO PRN (16:15)
[2022-02-27] MEDS ORDERED: NALOXONE HCL 0.4MG/ML VIAL IV PRN (16:45)
[2022-02-27] MEDS: AMLODIPINE 10MG TABLET PO SCH (18:22)
[2022-02-27] MEDS: METHYLPREDNISOLONE SOD SUCC 125 MG/2 ML VIAL IV SCH ×2 (19:22→23:36)
[2022-02-27 20:00] VITALS: BP 133/86
[2022-02-27 22:58] VITALS: BP 132/86
[2022-02-27] MEDS: ACETAMINOPHEN 325MG TABLET PO PRN (23:36)
[2022-02-27] MEDS: IPRATROPIUM/ALBUTEROL 0.5-3(2.5)MG/3ML NEB HHN PRN (23:41)
[2022-02-28] VITALS: BP 144/52
[2022-02-28 04:00] VITALS: BP 151/95
[2022-02-28] MEDS: IPRATROPIUM/ALBUTEROL 0.5-3(2.5)MG/3ML NEB HHN PRN ×4 (04:35→16:41)
[2022-02-28] MEDS: METHYLPREDNISOLONE SOD SUCC 125 MG/2 ML VIAL IV SCH (05:35)
[2022-02-28 07:36] LABS: HEMATOCRIT. 37.8 % (36.0-48.0); HEMOGLOBIN. 12.5 g/dL (12.0-16.0); MEAN CORPUSCULAR HEMOGLOBIN 32.9 pg (28.0-32.0); MEAN CORPUSCULAR VOLUME 99.4 fL (81.0-99.0); MEAN PLATELET VOLUME 9.5 fl (7.4-10.4); PLATELET 245 x1000/uL (130-400); RED CELL DISTRIBUTION WIDTH 15.6 % (11.6-14.6)
[2022-02-28 07:50] LABS: CHLORIDE 103 mEq/L (98-107)
[2022-02-28 08:00] VITALS: BP 154/76
[2022-02-28 08:02] LABS: HDL CHOLESTEROL 68 mg/dL (40-59); LDL CHOLESTEROL 161 mg/dL (5-100)
[2022-02-28] MEDS: ENOXAPARIN 40MG/0.4ML SYR SUBCUT SCH (09:00)
[2022-02-28] MEDS: FUROSEMIDE 40MG/4ML VIAL IV SCH (10:07)
[2022-02-28] MEDS: AMLODIPINE 10MG TABLET PO SCH (10:09)
[2022-02-28 12:00] VITALS: BP 145/60
[2022-02-28] MEDS: PREDNISONE 20MG TABLET PO SCH ×2 (12:10→13:11)
[2022-02-28 14:27] LABS: PLATELET ESTIMATE NORMAL
[2022-02-28 16:00] VITALS: BP 137/67
[2022-02-28 20:00] VITALS: BP 130/66
[2022-03-01] VITALS: BP 146/58
[2022-03-01 04:00] VITALS: BP 129/75
[2022-03-01] MEDS: ACETAMINOPHEN 325MG TABLET PO PRN (05:02)
[2022-03-01 08:00] VITALS: BP 136/89
[2022-03-01] MEDS: PREDNISONE 20MG TABLET PO SCH (10:37)
[2022-03-01] MEDS: ENOXAPARIN 40MG/0.4ML SYR SUBCUT SCH (10:37)
[2022-03-01] MEDS: AMLODIPINE 10MG TABLET PO SCH (10:37)
[2022-03-01] MEDS: FUROSEMIDE 40MG/4ML VIAL IV SCH (10:38)
[2022-03-01 12:00] VITALS: BP 135/86
[2022-03-01 12:56] LABS: HEMATOCRIT. 39.1 % (36.0-48.0); HEMOGLOBIN. 12.8 g/dL (12.0-16.0); MEAN CORPUSCULAR HEMOGLOBIN 31.7 pg (28.0-32.0); MEAN CORPUSCULAR VOLUME 97.1 fL (81.0-99.0); MEAN PLATELET VOLUME 8.7 fl (7.4-10.4); PLATELET 317 x1000/uL (130-400); RED BLOOD CELL COUNT 4.03 mill/uL (4.2-5.4); RED CELL DISTRIBUTION WIDTH 15.1 % (11.6-14.6)
[2022-03-01 13:09] LABS: CHLORIDE 99 mEq/L (98-107)
[2022-03-01 13:27] LABS: T4 FREE 0.51 ng/dL (0.76-1.46)
[2022-03-01 13:51] LABS: PLATELET ESTIMATE NORMAL
[2022-03-01 14:28] VITALS: BP 135/86
== END 2022-03-01 15:43 | disposition home or self-care (01) | DRG 291 ==
LOC: ER 00:16 → 6WST 12:13 → ENRESERV 19:37
PROVIDERS: ADMIT Hospitalist; ATTEND Hospitalist
DX: I11.0 Hypertensive heart disease with heart failure (principal); I50.33 Acute on chronic diastolic (congestive) heart failure; J44.9 Chronic obstructive pulmonary disease, unspecified; E03.9 Hypothyroidism, unspecified; F41.9 Anxiety disorder, unspecified; M06.9 Rheumatoid arthritis, unspecified; E78.5 Hyperlipidemia, unspecified; E78.00 Pure hypercholesterolemia, unspecified; R74.01 Elevation of levels of liver transaminase levels; R77.8 Other specified abnormalities of plasma proteins; I44.7 Left bundle-branch block, unspecified; I42.0 Dilated cardiomyopathy; Z99.81 Dependence on supplemental oxygen
CPT/HCPCS: 36415; 71045; 80053; 80061; 80320; 83735; 83880; 84439; 84443; 84480; 84484; 85025; 85379; 93005; 93970; 94640; 99285; J1650; J1940; J2930; J7512; G0480

== ENCOUNTER 2022-03-15 17:09 | Inpatient (IN) | payer MEDICARE, MEDICAID ==
[~2022-03-15] VITALS: Ht 162.6 cm; Wt 61.7 kg
[2022-03-15 23:20] LABS: BASOPHILS % 0.9 % (0.0-2.0); EOSINOPHILS % 0.6 % (0.0-5.0); HEMATOCRIT. 39.1 % (36.0-48.0); HEMOGLOBIN. 12.7 g/dL (12.0-16.0); LYMPHOCYTES % 16.7 % (20.0-50.0); MEAN CORPUSCULAR HEMOGLOBIN 31.7 pg (28.0-32.0); MEAN CORPUSCULAR VOLUME 97.8 fL (81.0-99.0); MEAN PLATELET VOLUME 8.2 fl (7.4-10.4); MONOCYTES % 6.3 % (2.0-8.0); NEUTROPHILS % 75.5 % (40.0-76.0); PLATELET 302 x1000/uL (130-400); RED CELL DISTRIBUTION WIDTH 15.4 % (11.6-14.6)
[2022-03-15 23:27] LABS: CHLORIDE 108 mEq/L (98-107)
[2022-03-16] MEDS ORDERED: ASPIRIN 81MG TABLET PO ONE (01:15)
[2022-03-16] MEDS ORDERED: FUROSEMIDE 40MG/4ML VIAL IV ONE (01:15)
[2022-03-16] MEDS ORDERED: FUROSEMIDE 40MG/4ML VIAL IVP NR (10:30)
[2022-03-16] MEDS ORDERED: ONDANSETRON HCL 4MG/2ML INJ IV PRN (10:30)
[2022-03-16] MEDS ORDERED: NON FORMULARY PATIENT HOME MED XX SCH (14:00)
[2022-03-16 15:29] VITALS: BP 101/65
[2022-03-16 16:15] VITALS: BP 137/82
[2022-03-16] MEDS: FUROSEMIDE 40MG/4ML VIAL IVP SCH (17:00)
[2022-03-16] MEDS ORDERED: ACETAMINOPHEN 325MG TABLET PO PRN (18:30)
[2022-03-16] MEDS ORDERED: IPRATROPIUM/ALBUTEROL 0.5-3(2.5)MG/3ML NEB HHN PRN (19:30)
[2022-03-16 20:00] VITALS: BP 155/97
[2022-03-16] MEDS: SACUBITRIL/VALSARTAN 24MG/26MG TABLET PO SCH (20:00)
[2022-03-16] MEDS ORDERED: CARVEDILOL 6.25 MG TABLET PO SCH (21:00)
[2022-03-16] MEDS ORDERED: ATORVASTATIN CALCIUM 20MG TABLET PO SCH (21:00)
[2022-03-16] MEDS: ATORVASTATIN CALCIUM 40MG TABLET PO SCH (21:00)
[2022-03-16 23:42] VITALS: BP 138/78
[2022-03-17 04:00] VITALS: BP 118/68
[2022-03-17] MEDS: LEVOTHYROXINE SODIUM 125MCG TABLET PO SCH (06:18)
[2022-03-17 06:41] LABS: BASOPHILS % 0.7 % (0.0-2.0); EOSINOPHILS % 1.6 % (0.0-5.0); HEMATOCRIT. 37.8 % (36.0-48.0); HEMOGLOBIN. 12.5 g/dL (12.0-16.0); LYMPHOCYTES % 13.9 % (20.0-50.0); MEAN CORPUSCULAR VOLUME 97.2 fL (81.0-99.0); MEAN PLATELET VOLUME 8.7 fl (7.4-10.4); MONOCYTES % 5.7 % (2.0-8.0); NEUTROPHILS % 78.1 % (40.0-76.0); PLATELET 312 x1000/uL (130-400); RED BLOOD CELL COUNT 3.89 mill/uL (4.2-5.4); RED CELL DISTRIBUTION WIDTH 15.4 % (11.6-14.6)
[2022-03-17 08:00] VITALS: BP 134/90
[2022-03-17 08:13] LABS: T4 FREE 0.41 ng/dL (0.76-1.46)
[2022-03-17] MEDS: SACUBITRIL/VALSARTAN 24MG/26MG TABLET PO SCH ×3 (09:00→17:00)
[2022-03-17] MEDS: FUROSEMIDE 40MG/4ML VIAL IVP SCH ×2 (09:46→17:00)
[2022-03-17] MEDS: ASPIRIN 81MG TABLET PO SCH (09:46)
[2022-03-17] MEDS: FAMOTIDINE 20MG TABLET PO SCH (09:47)
[2022-03-17 20:00] VITALS: BP 127/80
[2022-03-17] MEDS: ATORVASTATIN CALCIUM 40MG TABLET PO SCH (21:00)
[2022-03-18] VITALS: BP 117/58
[2022-03-18 04:00] VITALS: BP 117/72
[2022-03-18] MEDS: LEVOTHYROXINE SODIUM 125MCG TABLET PO SCH (06:28)
[2022-03-18 07:12] LABS: BASOPHILS % 0.7 % (0.0-2.0); EOSINOPHILS % 1.6 % (0.0-5.0); HEMATOCRIT. 37.2 % (36.0-48.0); HEMOGLOBIN. 12.6 g/dL (12.0-16.0); LYMPHOCYTES % 15.6 % (20.0-50.0); MEAN CORPUSCULAR HEMOGLOBIN 32.8 pg (28.0-32.0); MEAN PLATELET VOLUME 8.7 fl (7.4-10.4); MONOCYTES % 7.1 % (2.0-8.0); PLATELET 291 x1000/uL (130-400); RED BLOOD CELL COUNT 3.84 mill/uL (4.2-5.4); RED CELL DISTRIBUTION WIDTH 15.5 % (11.6-14.6)
[2022-03-18 07:26] LABS: CHLORIDE 102 mEq/L (98-107)
[2022-03-18 08:00] VITALS: BP 137/80
[2022-03-18] MEDS: ASPIRIN 81MG TABLET PO SCH (09:00)
[2022-03-18] MEDS: FUROSEMIDE 40MG/4ML VIAL IVP SCH ×2 (09:00→16:18)
[2022-03-18] MEDS: FAMOTIDINE 20MG TABLET PO SCH (09:00)
[2022-03-18] MEDS: SACUBITRIL/VALSARTAN 24MG/26MG TABLET PO SCH ×2 (09:00→16:15)
[2022-03-18 12:00] VITALS: BP 140/77
[2022-03-18 16:00] VITALS: BP 138/78
[2022-03-18 20:00] VITALS: BP 122/71
[2022-03-18] MEDS: ATORVASTATIN CALCIUM 40MG TABLET PO SCH (21:00)
[2022-03-18] MEDS: IPRATROPIUM/ALBUTEROL 0.5-3(2.5)MG/3ML NEB HHN SCH (21:16)
[2022-03-19] VITALS: BP 130/87
[2022-03-19] MEDS: IPRATROPIUM/ALBUTEROL 0.5-3(2.5)MG/3ML NEB HHN SCH (02:32)
[2022-03-19 04:00] VITALS: BP 113/63
[2022-03-19] MEDS: LEVOTHYROXINE SODIUM 125MCG TABLET PO SCH (06:19)
[2022-03-19 08:00] VITALS: BP 130/75
[2022-03-19] MEDS: FUROSEMIDE 40MG/4ML VIAL IVP SCH (10:35)
[2022-03-19] MEDS: ASPIRIN 81MG TABLET PO SCH (10:35)
[2022-03-19] MEDS: FAMOTIDINE 20MG TABLET PO SCH (10:35)
[2022-03-19] MEDS: SACUBITRIL/VALSARTAN 24MG/26MG TABLET PO SCH (10:35)
[2022-03-19] MEDS ORDERED: ASPI-1406 PO (10:57)
[2022-03-19] MEDS ORDERED: FAMO-287 MT (10:57)
[2022-03-19] MEDS ORDERED: DAPA10TA PO (10:57)
[2022-03-19] MEDS ORDERED: FURO40TA5 PO (10:57)
[2022-03-19] MEDS ORDERED: ATOR-2 PO (10:57)
[2022-03-19] MEDS ORDERED: UMEC1DIS IH (10:57)
[2022-03-19] MEDS ORDERED: SACU1TAB PO (10:57)
[2022-03-19] MEDS ORDERED: LEVO125T MT (10:57)
[2022-03-19 14:22] VITALS: BP 130/75
== END 2022-03-19 17:00 | disposition home health service (06) | DRG 291 ==
LOC: ER 17:09 → MICUSO 03-16 05:52 → 8WST 03-16 07:18
PROVIDERS: ADMIT Internal Medicine; ATTEND Internal Medicine
DX: I11.0 Hypertensive heart disease with heart failure (principal); I50.23 Acute on chronic systolic (congestive) heart failure; J96.01 Acute respiratory failure with hypoxia; J44.1 Chronic obstructive pulmonary disease with (acute) exacerbation; I27.21 Secondary pulmonary arterial hypertension; I42.9 Cardiomyopathy, unspecified; I71.2 Thoracic aortic aneurysm, without rupture; I44.7 Left bundle-branch block, unspecified; R00.1 Bradycardia, unspecified; I08.0 Rheumatic disorders of both mitral and aortic valves; N28.9 Disorder of kidney and ureter, unspecified; M19.90 Unspecified osteoarthritis, unspecified site; Z20.822 Contact with and (suspected) exposure to COVID-19; E05.00 Thyrotoxicosis with diffuse goiter without thyrotoxic crisis or storm; E03.9 Hypothyroidism, unspecified; T38.1X6A Underdosing of thyroid hormones and substitutes, initial encounter; E78.00 Pure hypercholesterolemia, unspecified; Z91.041 Radiographic dye allergy status; Z79.899 Other long term (current) drug therapy; Y92.89 Other specified places as the place of occurrence of the external cause
CPT/HCPCS: 36415; 71045; 80048; 80053; 83735; 83880; 84439; 84443; 84481; 84484; 85025; 87426; 93005; 94640; 99285; J1940

== ENCOUNTER 2022-04-02 01:08 | Inpatient (IN) | payer MEDICARE, MEDICAID ==
[~2022-04-02] VITALS: Ht 160 cm; Wt 65.3 kg
[~2022-04-02 01:08] MED LIST changes: -CARV3.1242 PO; -P20 PO; -SPIR25TA6 PO
[2022-04-02] MEDS ORDERED: FUROSEMIDE 100MG/10ML VIAL IVP ONE (02:15)
[2022-04-02] MEDS ORDERED: ASPIRIN 81MG TABLET PO ONE (02:15)
[2022-04-02] MEDS ORDERED: NITROGLYCERIN 0.4MG TABLET SL SL PRN (02:15)
[2022-04-02 02:59] LABS: HEMATOCRIT. 37.7 % (36.0-48.0); HEMOGLOBIN. 12.7 g/dL (12.0-16.0); MEAN CORPUSCULAR HEMOGLOBIN 32.6 pg (28.0-32.0); MEAN CORPUSCULAR VOLUME 96.6 fL (81.0-99.0); MEAN PLATELET VOLUME 8.5 fl (7.4-10.4); PLATELET 269 x1000/uL (130-400)
[2022-04-02 03:11] LABS: CHLORIDE 109 mEq/L (98-107)
[2022-04-02 05:36] LABS: PLATELET ESTIMATE NORMAL
[2022-04-02] MEDS ORDERED: ASPIRIN 81MG TABLET PO NR (06:00)
[2022-04-02] MEDS ORDERED: FUROSEMIDE 100MG/10ML VIAL IVP NR (06:00)
[2022-04-02] MEDS ORDERED: NA PHOS,M-B/NA PHOS,DI-BA ENEMA 118ML PR PRN (13:15)
[2022-04-02] MEDS ORDERED: CLONIDINE 0.1MG TABLET PO PRN (13:15)
[2022-04-02] MEDS ORDERED: MAGNESIUM/ALUMINUM HYDROXIDE/SIMETHICONE 30ML UDC PO PRN (13:15)
[2022-04-02] MEDS ORDERED: ONDANSETRON HCL 4MG/2ML INJ IV PRN (13:15)
[2022-04-02] MEDS ORDERED: LORAZEPAM 0.5MG TABLET PO PRN (13:15)
[2022-04-02] MEDS ORDERED: IPRATROPIUM/ALBUTEROL 0.5-3(2.5)MG/3ML NEB NEB PRN (13:15)
[2022-04-02] MEDS ORDERED: DOCUSATE SODIUM 100MG CAPSULE PO PRN (13:15)
[2022-04-02] MEDS ORDERED: NALOXONE HCL 0.4MG/ML VIAL IV PRN (13:15)
[2022-04-02] MEDS ORDERED: HYDROCODONE/ACETAMINOPHEN 5/325MG TABLET PO PRN (13:15)
[2022-04-02] MEDS ORDERED: GUAIFENESIN 200MG/10ML SUGAR FREE UDC PO PRN (13:15)
[2022-04-02] MEDS ORDERED: ACETAMINOPHEN 650MG/20.3ML UDC GT PRN (13:15)
[2022-04-02] MEDS: ENOXAPARIN 40MG/0.4ML SYR SUBCUT SCH ×2 (13:39→13:43)
[2022-04-02] MEDS: FUROSEMIDE 40MG/4ML VIAL IVP SCH ×2 (13:39→18:18)
[2022-04-02] MEDS: LOSARTAN POTASSIUM 50 MG TABLET PO SCH (14:45)
[2022-04-02 15:19] VITALS: BP 133/82
[2022-04-02 16:00] VITALS: BP 132/76
[2022-04-02] MEDS: METHYLPREDNISOLONE SOD SUCC 40 MG/ML VIAL IV SCH (18:18)
[2022-04-02 20:00] VITALS: BP 134/77
[2022-04-02] MEDS: IPRATROPIUM/ALBUTEROL 0.5-3(2.5)MG/3ML NEB HHN SCH (20:05)
[2022-04-02 20:06] LABS: INR 1.1; PROTHROMBIN TIME 12.1 sec (9.6-11.0)
[2022-04-02 20:13] LABS: CREATINE KINASE MB FRACTION 1.1 ng/mL (0.5-3.6)
[2022-04-02] MEDS ORDERED: CARVEDILOL 3.125 MG TABLET PO SCH (21:00)
[2022-04-02] MEDS: FAMOTIDINE 20MG TABLET PO SCH (21:30)
[2022-04-03] VITALS: BP 127/74
[2022-04-03] MEDS: IPRATROPIUM/ALBUTEROL 0.5-3(2.5)MG/3ML NEB HHN SCH ×5 (02:00→20:00)
[2022-04-03 04:00] VITALS: BP 134/68
[2022-04-03 05:09] VITALS: BP 134/68
[2022-04-03] MEDS: LOSARTAN POTASSIUM 50 MG TABLET PO SCH (08:44)
[2022-04-03] MEDS: FUROSEMIDE 40MG/4ML VIAL IVP SCH ×2 (08:44→17:28)
[2022-04-03] MEDS: LEVOTHYROXINE SODIUM 125MCG TABLET PO SCH (08:44)
[2022-04-03] MEDS: ASPIRIN 81MG EC TABLET PO SCH (08:45)
[2022-04-03] MEDS: METHYLPREDNISOLONE SOD SUCC 40 MG/ML VIAL IV SCH (09:00)
[2022-04-03 09:07] LABS: CHLORIDE 103 mEq/L (98-107)
[2022-04-03 09:20] LABS: BASOPHILS % 0.3 % (0.0-2.0); HEMATOCRIT. 36.8 % (36.0-48.0); HEMOGLOBIN. 12.4 g/dL (12.0-16.0); LYMPHOCYTES % 8.7 % (20.0-50.0); MEAN CORPUSCULAR HEMOGLOBIN 32.6 pg (28.0-32.0); MEAN CORPUSCULAR VOLUME 96.6 fL (81.0-99.0); MEAN PLATELET VOLUME 9.1 fl (7.4-10.4); MONOCYTES % 4.8 % (2.0-8.0); NEUTROPHILS % 86.2 % (40.0-76.0); PLATELET 269 x1000/uL (130-400); RED BLOOD CELL COUNT 3.82 mill/uL (4.2-5.4); RED CELL DISTRIBUTION WIDTH 15.7 % (11.6-14.6)
[2022-04-03 09:21] LABS: HDL CHOLESTEROL 55 mg/dL (40-59); LDL CHOLESTEROL 214 mg/dL (5-100)
[2022-04-03 12:00] VITALS: BP 129/63
[2022-04-03] MEDS: CARVEDILOL 6.25 MG TABLET PO SCH ×2 (13:45→21:28)
[2022-04-03] MEDS: ENOXAPARIN 40MG/0.4ML SYR SUBCUT SCH (13:46)
[2022-04-03] MEDS ORDERED: DIPHENHYDRAMINE 50MG CAPSULE PO NR (15:00)
[2022-04-03 16:00] VITALS: BP 129/71
[2022-04-03 20:30] VITALS: BP 134/79
[2022-04-03] MEDS: ATORVASTATIN CALCIUM 40MG TABLET PO SCH (21:28)
[2022-04-03] MEDS: FAMOTIDINE 20MG TABLET PO SCH (21:28)
[2022-04-04] MEDS: IPRATROPIUM/ALBUTEROL 0.5-3(2.5)MG/3ML NEB HHN SCH ×4 (01:55→20:00)
[2022-04-04] MEDS ORDERED: PREDNISONE 20MG TABLET PO NR ×6 (03:00→17:00)
[2022-04-04 06:56] LABS: BASOPHILS % 0.7 % (0.0-2.0); EOSINOPHILS % 0.8 % (0.0-5.0); HEMATOCRIT. 41.4 % (36.0-48.0); HEMOGLOBIN. 13.7 g/dL (12.0-16.0); LYMPHOCYTES % 12.4 % (20.0-50.0); MEAN CORPUSCULAR HEMOGLOBIN 32.1 pg (28.0-32.0); MEAN CORPUSCULAR VOLUME 97.1 fL (81.0-99.0); MONOCYTES % 7.8 % (2.0-8.0); NEUTROPHILS % 78.3 % (40.0-76.0); RED BLOOD CELL COUNT 4.27 mill/uL (4.2-5.4); RED CELL DISTRIBUTION WIDTH 15.9 % (11.6-14.6)
[2022-04-04 08:00] VITALS: BP 130/76
[2022-04-04] MEDS: LEVOTHYROXINE SODIUM 125MCG TABLET PO SCH (08:41)
[2022-04-04] MEDS: METHYLPREDNISOLONE SOD SUCC 40 MG/ML VIAL IV SCH (08:42)
[2022-04-04] MEDS: CARVEDILOL 6.25 MG TABLET PO SCH ×2 (08:42→20:28)
[2022-04-04] MEDS: FUROSEMIDE 40MG/4ML VIAL IVP SCH ×2 (08:42→17:49)
[2022-04-04] MEDS: LOSARTAN POTASSIUM 50 MG TABLET PO SCH (08:42)
[2022-04-04] MEDS: ASPIRIN 81MG EC TABLET PO SCH (08:43)
[2022-04-04 09:01] LABS: PLATELET 282 x1000/uL (130-400)
[2022-04-04 12:00] VITALS: BP 130/74
[2022-04-04] MEDS: ENOXAPARIN 40MG/0.4ML SYR SUBCUT SCH (14:00)
[2022-04-04] MEDS ORDERED: DIPHENHYDRAMINE 50MG CAPSULE PO NR ×2 (15:00→17:00)
[2022-04-04 16:00] VITALS: BP 133/60
[2022-04-04 20:15] VITALS: BP 138/75
[2022-04-04] MEDS: ATORVASTATIN CALCIUM 40MG TABLET PO SCH (20:27)
[2022-04-04] MEDS: FAMOTIDINE 20MG TABLET PO SCH (20:27)
[2022-04-05] MEDS: IPRATROPIUM/ALBUTEROL 0.5-3(2.5)MG/3ML NEB HHN SCH ×4 (01:50→22:31)
[2022-04-05 08:00] VITALS: BP 147/68
[2022-04-05] MEDS: LEVOTHYROXINE SODIUM 125MCG TABLET PO SCH (08:14)
[2022-04-05] MEDS: LOSARTAN POTASSIUM 50 MG TABLET PO SCH (09:00)
[2022-04-05] MEDS: METHYLPREDNISOLONE SOD SUCC 40 MG/ML VIAL IV SCH (09:00)
[2022-04-05] MEDS: FUROSEMIDE 40MG/4ML VIAL IVP SCH ×2 (09:00→17:00)
[2022-04-05] MEDS: CARVEDILOL 6.25 MG TABLET PO SCH ×2 (09:00→21:00)
[2022-04-05] MEDS: ASPIRIN 81MG EC TABLET PO SCH (09:00)
[2022-04-05 12:00] VITALS: BP 125/90
[2022-04-05] MEDS: ENOXAPARIN 40MG/0.4ML SYR SUBCUT SCH (14:00)
[2022-04-05 16:00] VITALS: BP 125/84
[2022-04-05 20:00] VITALS: BP 107/64
[2022-04-05] MEDS: FAMOTIDINE 20MG TABLET PO SCH (21:57)
[2022-04-05] MEDS: ATORVASTATIN CALCIUM 40MG TABLET PO SCH (21:57)
[2022-04-06] VITALS: BP 110/66
[2022-04-06] MEDS: IPRATROPIUM/ALBUTEROL 0.5-3(2.5)MG/3ML NEB HHN SCH ×4 (02:14→20:30)
[2022-04-06 04:00] VITALS: BP 108/66
[2022-04-06] MEDS: LEVOTHYROXINE SODIUM 125MCG TABLET PO SCH (09:27)
[2022-04-06] MEDS: LOSARTAN POTASSIUM 50 MG TABLET PO SCH (09:27)
[2022-04-06] MEDS: METHYLPREDNISOLONE SOD SUCC 40 MG/ML VIAL IV SCH (09:27)
[2022-04-06] MEDS: ASPIRIN 81MG EC TABLET PO SCH (09:27)
[2022-04-06] MEDS: FUROSEMIDE 40MG/4ML VIAL IVP SCH ×2 (09:27→17:36)
[2022-04-06] MEDS: CARVEDILOL 6.25 MG TABLET PO SCH ×2 (09:28→21:44)
[2022-04-06] MEDS: ENOXAPARIN 40MG/0.4ML SYR SUBCUT SCH (17:36)
[2022-04-06 20:00] VITALS: BP 121/53
[2022-04-06] MEDS: FAMOTIDINE 20MG TABLET PO SCH (21:43)
[2022-04-06] MEDS: ATORVASTATIN CALCIUM 40MG TABLET PO SCH (21:45)
[2022-04-07] MEDS: IPRATROPIUM/ALBUTEROL 0.5-3(2.5)MG/3ML NEB HHN SCH ×3 (02:43→12:00)
[2022-04-07] MEDS: LEVOTHYROXINE SODIUM 125MCG TABLET PO SCH ×2 (06:47→06:51)
[2022-04-07 08:00] VITALS: BP 97/76
[2022-04-07] MEDS: METHYLPREDNISOLONE SOD SUCC 40 MG/ML VIAL IV SCH (09:57)
[2022-04-07] MEDS: LOSARTAN POTASSIUM 50 MG TABLET PO SCH (09:57)
[2022-04-07] MEDS: ASPIRIN 81MG EC TABLET PO SCH (09:57)
[2022-04-07] MEDS: FUROSEMIDE 40MG/4ML VIAL IVP SCH (09:57)
[2022-04-07] MEDS: CARVEDILOL 6.25 MG TABLET PO SCH (09:57)
[2022-04-07] MEDS: ENOXAPARIN 40MG/0.4ML SYR SUBCUT SCH (14:00)
[2022-04-07 15:25] VITALS: BP 105/72
== END 2022-04-07 14:59 | disposition home or self-care (01) | DRG 291 ==
LOC: ER 01:08 → 7WST 05:04 → ENRESERV 10:53
PROVIDERS: ADMIT Internal Medicine; ATTEND Internal Medicine
DX: I11.0 Hypertensive heart disease with heart failure (principal); I50.23 Acute on chronic systolic (congestive) heart failure; J44.1 Chronic obstructive pulmonary disease with (acute) exacerbation; M48.56XA Collapsed vertebra, not elsewhere classified, lumbar region, initial encounter for fracture; I42.9 Cardiomyopathy, unspecified; I27.21 Secondary pulmonary arterial hypertension; I25.10 Atherosclerotic heart disease of native coronary artery without angina pectoris; E78.00 Pure hypercholesterolemia, unspecified; E03.9 Hypothyroidism, unspecified; M48.061 Spinal stenosis, lumbar region without neurogenic claudication; I71.2 Thoracic aortic aneurysm, without rupture; M54.30 Sciatica, unspecified side; I50.9 Heart failure, unspecified; E11.9 Type 2 diabetes mellitus without complications; I44.7 Left bundle-branch block, unspecified; E78.5 Hyperlipidemia, unspecified; R26.89 Other abnormalities of gait and mobility; R06.03 Acute respiratory distress; R77.8 Other specified abnormalities of plasma proteins; I08.0 Rheumatic disorders of both mitral and aortic valves; Z88.8 Allergy status to other drugs, medicaments and biological substances; Z99.81 Dependence on supplemental oxygen; Z91.19 Patient's noncompliance with other medical treatment and regimen; Z79.899 Other long term (current) drug therapy
CPT/HCPCS: 36415; 71045; 71250; 80048; 80053; 80061; 82550; 82553; 83880; 84484; 85025; 93005; 93970; 94640; 97162; 97166; 99285; C1893; J1650; J1940; J2920; J7512

== ENCOUNTER 2022-06-06 00:33 | Emergency (ER) | payer MEDICARE, MEDICAID ==
[~2022-06-06] VITALS: Ht 162.6 cm; Wt 64.8 kg
[~2022-06-06 00:33] MED LIST changes: +FURO-151 MT; +METO2.5T2 MT
[2022-06-06] MEDS ORDERED: FUROSEMIDE 40MG TABLET PO ONE (02:00)
[2022-06-06 02:09] LABS: BASOPHILS % 0.8 % (0.0-2.0); EOSINOPHILS % 0.6 % (0.0-5.0); HEMATOCRIT. 39.3 % (36.0-48.0); LYMPHOCYTES % 19.1 % (20.0-50.0); MEAN CORPUSCULAR HEMOGLOBIN 31.5 pg (28.0-32.0); MEAN CORPUSCULAR VOLUME 95.7 fL (81.0-99.0); MEAN PLATELET VOLUME 8.8 fl (7.4-10.4); MONOCYTES % 7.2 % (2.0-8.0); NEUTROPHILS % 72.3 % (40.0-76.0); PLATELET 203 x1000/uL (130-400); RED BLOOD CELL COUNT 4.11 mill/uL (4.2-5.4); RED CELL DISTRIBUTION WIDTH 16.3 % (11.6-14.6)
[2022-06-06 02:30] LABS: CHLORIDE 109 mEq/L (98-107)
[2022-06-06] MEDS ORDERED: ALBUTEROL (0.083%) 2.5MG/3ML NEB HHN ONE (03:00)
[2022-06-06 03:47] VITALS: BP 112/75
== END 2022-06-06 03:50 | disposition home or self-care (01) ==
LOC: ER 00:33
DX: R06.02 Shortness of breath (principal); Z59.00 Homelessness unspecified; I50.9 Heart failure, unspecified; J44.9 Chronic obstructive pulmonary disease, unspecified; Z79.899 Other long term (current) drug therapy
CPT/HCPCS: 36415; 71045; 80053; 83880; 85025; 93005; 99285

== ENCOUNTER 2022-06-08 02:39 | Inpatient (IN) | payer MEDICARE, MEDICAID ==
[~2022-06-08] VITALS: Ht 162.6 cm; Wt 59.0 kg
[2022-06-08] MEDS ORDERED: FUROSEMIDE 40MG/4ML VIAL IV ONE (03:15)
[2022-06-08 04:40] LABS: BASOPHILS % 0.5 % (0.0-2.0); EOSINOPHILS % 0.9 % (0.0-5.0); HEMATOCRIT. 39.3 % (36.0-48.0); HEMOGLOBIN. 13.1 g/dL (12.0-16.0); LYMPHOCYTES % 21.4 % (20.0-50.0); MEAN CORPUSCULAR HEMOGLOBIN 32.3 pg (28.0-32.0); MEAN CORPUSCULAR VOLUME 96.9 fL (81.0-99.0); MONOCYTES % 6.5 % (2.0-8.0); NEUTROPHILS % 70.7 % (40.0-76.0); PLATELET 199 x1000/uL (130-400); RED BLOOD CELL COUNT 4.06 mill/uL (4.2-5.4); RED CELL DISTRIBUTION WIDTH 16.3 % (11.6-14.6)
[2022-06-08 04:47] LABS: CHLORIDE 108 mEq/L (98-107)
[2022-06-08 12:00] VITALS: BP 139/94
[2022-06-08] MEDS ORDERED: ONDANSETRON HCL 4MG/2ML INJ IV PRN (12:15)
[2022-06-08] MEDS ORDERED: IPRATROPIUM/ALBUTEROL 0.5-3(2.5)MG/3ML NEB HHN PRN (12:15)
[2022-06-08] MEDS ORDERED: CLONIDINE 0.1MG TABLET PO PRN (12:15)
[2022-06-08 12:37] VITALS: BP 139/94
[2022-06-08] MEDS: ASPIRIN 81MG EC TABLET PO SCH (13:09)
[2022-06-08] MEDS: LEVOTHYROXINE SODIUM 125MCG TABLET PO SCH (13:09)
[2022-06-08] MEDS: FAMOTIDINE 20MG TABLET PO SCH (13:09)
[2022-06-08 16:00] VITALS: BP 129/89
[2022-06-08 20:00] VITALS: BP 134/78
[2022-06-08 21:42] LABS: CREATINE KINASE MB FRACTION 1.2 ng/mL (0.5-3.6)
[2022-06-09] VITALS: BP 129/90
[2022-06-09] MEDS: ALPRAZOLAM 0.25 MG TABLET PO PRN ×2 (02:37→23:09)
[2022-06-09 04:00] VITALS: BP 136/95
[2022-06-09] MEDS: LEVOTHYROXINE SODIUM 125MCG TABLET PO SCH (06:22)
[2022-06-09 08:00] VITALS: BP 130/89
[2022-06-09 09:23] LABS: CREATINE KINASE MB FRACTION 2.1 ng/mL (0.5-3.6)
[2022-06-09] MEDS: ASPIRIN 81MG EC TABLET PO SCH (09:35)
[2022-06-09] MEDS: FAMOTIDINE 20MG TABLET PO SCH (09:35)
[2022-06-09 12:00] VITALS: BP 132/89
[2022-06-09] MEDS ORDERED: METOLAZONE 2.5MG TABLET PO NR (13:27)
[2022-06-09 16:00] VITALS: BP 138/92
[2022-06-09 20:00] VITALS: BP 152/89
[2022-06-09] MEDS: FUROSEMIDE 40MG/4ML VIAL IVP SCH ×2 (21:00→21:48)
[2022-06-09] MEDS: ATORVASTATIN CALCIUM 40MG TABLET PO SCH (21:00)
[2022-06-10] VITALS: BP 135/84
[2022-06-10] MEDS: FUROSEMIDE 40MG/4ML VIAL IVP SCH ×2 (00:11→21:00)
[2022-06-10 04:00] VITALS: BP 124/87
[2022-06-10] MEDS: LEVOTHYROXINE SODIUM 125MCG TABLET PO SCH (06:35)
[2022-06-10 08:00] VITALS: BP 145/93
[2022-06-10] MEDS: FAMOTIDINE 20MG TABLET PO SCH (09:00)
[2022-06-10] MEDS: ASPIRIN 81MG EC TABLET PO SCH (09:00)
[2022-06-10 20:00] VITALS: BP 124/78
[2022-06-10] MEDS: ATORVASTATIN CALCIUM 40MG TABLET PO SCH (21:00)
[2022-06-11 04:00] VITALS: BP 145/85
[2022-06-11] MEDS: LEVOTHYROXINE SODIUM 125MCG TABLET PO SCH (06:31)
[2022-06-11 07:51] VITALS: BP 142/80
[2022-06-11] MEDS: FAMOTIDINE 20MG TABLET PO SCH (08:43)
[2022-06-11] MEDS: FUROSEMIDE 40MG/4ML VIAL IVP SCH ×2 (08:43→20:37)
[2022-06-11] MEDS: ASPIRIN 81MG EC TABLET PO SCH (08:43)
[2022-06-11 12:00] VITALS: BP 138/72
[2022-06-11 16:00] VITALS: BP 139/89
[2022-06-11] MEDS ORDERED: MAGNESIUM 1 G PREMIX 100 ML IV NR (16:00)
[2022-06-11 17:53] LABS: BASOPHILS % 1.2 % (0.0-2.0); EOSINOPHILS % 1.5 % (0.0-5.0); HEMATOCRIT. 38.9 % (36.0-48.0); HEMOGLOBIN. 12.8 g/dL (12.0-16.0); LYMPHOCYTES % 12.3 % (20.0-50.0); MEAN CORPUSCULAR HEMOGLOBIN 31.9 pg (28.0-32.0); MEAN CORPUSCULAR VOLUME 96.9 fL (81.0-99.0); MONOCYTES % 6.5 % (2.0-8.0); NEUTROPHILS % 78.5 % (40.0-76.0); PLATELET 188 x1000/uL (130-400); RED BLOOD CELL COUNT 4.01 mill/uL (4.2-5.4); RED CELL DISTRIBUTION WIDTH 16.1 % (11.6-14.6)
[2022-06-11 18:07] LABS: CHLORIDE 104 mEq/L (98-107)
[2022-06-11] MEDS: ATORVASTATIN CALCIUM 40MG TABLET PO SCH (20:37)
[2022-06-12] VITALS: BP 135/90
[2022-06-12 04:00] VITALS: BP 136/86
[2022-06-12] MEDS: ACETAMINOPHEN 650MG/20.3ML UDC GT PRN ×2 (04:17→04:21)
[2022-06-12] MEDS: ALPRAZOLAM 0.25 MG TABLET PO PRN (04:17)
[2022-06-12] MEDS: LEVOTHYROXINE SODIUM 125MCG TABLET PO SCH (06:32)
[2022-06-12] MEDS: ASPIRIN 81MG EC TABLET PO SCH (09:00)
[2022-06-12] MEDS: FUROSEMIDE 40MG/4ML VIAL IVP SCH (09:00)
[2022-06-12] MEDS: FAMOTIDINE 20MG TABLET PO SCH (09:00)
[2022-06-12] MEDS ORDERED: ALPRAZOLAM 0.25 MG TABLET PO PRN (11:30)
[2022-06-12] MEDS ORDERED: FUROSEMIDE 40MG/4 ML UDC PO SCH (17:15)
[2022-06-12] MEDS ORDERED: ACETAMINOPHEN 325MG TABLET PO PRN (17:45)
[2022-06-12] MEDS: ATORVASTATIN CALCIUM 40MG TABLET PO SCH (21:00)
== END 2022-06-12 23:10 | DRG 291 ==
LOC: ER 02:39 → 6WST 05:55 → EDBEDREQ 05:57 → EDBEDREQTM 05:57 → 6WST 11:23
PROVIDERS: ADMIT Internal Medicine; ATTEND Internal Medicine
DX: I11.0 Hypertensive heart disease with heart failure (principal); I50.21 Acute systolic (congestive) heart failure; J96.21 Acute and chronic respiratory failure with hypoxia; I71.20 Thoracic aortic aneurysm, without rupture, unspecified; E78.5 Hyperlipidemia, unspecified; E03.9 Hypothyroidism, unspecified; R77.8 Other specified abnormalities of plasma proteins; J44.9 Chronic obstructive pulmonary disease, unspecified; Z79.899 Other long term (current) drug therapy; Z88.8 Allergy status to other drugs, medicaments and biological substances; Z79.82 Long term (current) use of aspirin; Z79.890 Hormone replacement therapy
CPT/HCPCS: 36415; 71045; 80048; 80053; 82553; 83735; 83880; 84132; 84484; 85025; 93005; 97162; 97530; 99285; C1893; J1940; J3475

== ENCOUNTER 2022-06-23 03:18 | Emergency (ER) | payer MEDICARE, MEDICAID ==
[~2022-06-23] VITALS: Ht 162.6 cm; Wt 63.4 kg
[2022-06-23 04:50] LABS: BASOPHILS % 1.1 % (0.0-2.0); EOSINOPHILS % 0.7 % (0.0-5.0); HEMATOCRIT. 38.6 % (36.0-48.0); HEMOGLOBIN. 12.7 g/dL (12.0-16.0); LYMPHOCYTES % 16.4 % (20.0-50.0); MEAN CORPUSCULAR VOLUME 97.5 fL (81.0-99.0); MEAN PLATELET VOLUME 8.1 fl (7.4-10.4); MONOCYTES % 6.7 % (2.0-8.0); NEUTROPHILS % 75.1 % (40.0-76.0); PLATELET 255 x1000/uL (130-400); RED BLOOD CELL COUNT 3.96 mill/uL (4.2-5.4); RED CELL DISTRIBUTION WIDTH 16.3 % (11.6-14.6)
[2022-06-23 05:01] LABS: CHLORIDE 110 mEq/L (98-107)
[2022-06-23] MEDS ORDERED: FUROSEMIDE 40MG/4ML VIAL IVP ONE (06:00)
[2022-06-23 07:20] VITALS: BP 139/88
== END 2022-06-23 07:49 | disposition home or self-care (01) ==
LOC: ER 03:18
DX: I11.0 Hypertensive heart disease with heart failure (principal); I50.9 Heart failure, unspecified; J44.9 Chronic obstructive pulmonary disease, unspecified; Z91.041 Radiographic dye allergy status; Z79.899 Other long term (current) drug therapy
CPT/HCPCS: 36415; 71045; 80053; 83880; 84484; 85025; 93005; 96374; 99285; J1940

== ENCOUNTER 2022-08-02 23:49 | Inpatient (IN) | payer MEDICARE, MEDICAID ==
[~2022-08-02] VITALS: Ht 154.9 cm; Wt 63.5 kg
[~2022-08-02 23:49] MED LIST changes: +ALBU6.7H15 INH; +COR3 PO; -FURO40TA5 PO; -LEVO125T MT; +SYN150 PO
[2022-08-03] MEDS ORDERED: AZITHROMYCIN 500MG/250ML 250 ML IV ONE (03:45)
[2022-08-03] MEDS ORDERED: CEFTRIAXONE 1 G PREMIX 50 ML IV ONE (03:45)
[2022-08-03] MEDS ORDERED: KETOROLAC 15MG/ML VIAL IV PRN (06:30)
[2022-08-03] MEDS ORDERED: ONDANSETRON HCL 4MG/2ML INJ IV PRN (06:30)
[2022-08-03] MEDS ORDERED: NA PHOS,M-B/NA PHOS,DI-BA ENEMA 118ML PR PRN (06:30)
[2022-08-03] MEDS ORDERED: NITROGLYCERIN 0.4MG TABLET SL SL PRN (06:30)
[2022-08-03] MEDS ORDERED: MAGNESIUM/ALUMINUM HYDROXIDE/SIMETHICONE 30ML UDC PO PRN (06:30)
[2022-08-03] MEDS ORDERED: DOCUSATE SODIUM 100MG CAPSULE PO PRN (06:30)
[2022-08-03] MEDS ORDERED: GUAIFENESIN 200MG/10ML SUGAR FREE UDC PO PRN (06:30)
[2022-08-03] MEDS ORDERED: ACETAMINOPHEN 325MG TABLET PO PRN ×2 (06:30)
[2022-08-03] MEDS ORDERED: ZOLPIDEM TARTRATE 5MG TABLET PO PRN (06:30)
[2022-08-03] MEDS ORDERED: CLONIDINE 0.1MG TABLET PO PRN (06:30)
[2022-08-03] MEDS ORDERED: IPRATROPIUM/ALBUTEROL 0.5-3(2.5)MG/3ML NEB HHN PRN (06:30)
[2022-08-03] MEDS ORDERED: ENOXAPARIN 40MG/0.4ML SYR SUBCUT SCH (06:30)
[2022-08-03 07:49] LABS: EOSINOPHILS % 0.6 % (0.0-5.0); HEMATOCRIT. 41.9 % (36.0-48.0); HEMOGLOBIN. 13.5 g/dL (12.0-16.0); LYMPHOCYTES % 26.6 % (20.0-50.0); MEAN CORPUSCULAR HEMOGLOBIN 31.9 pg (28.0-32.0); MEAN PLATELET VOLUME 9.5 fl (7.4-10.4); MONOCYTES % 5.7 % (2.0-8.0); NEUTROPHILS % 66.1 % (40.0-76.0); PLATELET 213 x1000/uL (130-400); RED BLOOD CELL COUNT 4.23 mill/uL (4.2-5.4); RED CELL DISTRIBUTION WIDTH 17.2 % (11.6-14.6)
[2022-08-03] MEDS ORDERED: LOSARTAN POTASSIUM 50 MG TABLET PO SCH (09:00)
[2022-08-03] MEDS ORDERED: CEFTRIAXONE 1 G PREMIX 50 ML IV SCH (09:00)
[2022-08-03] MEDS ORDERED: ASPIRIN 325MG EC TABLET PO SCH (09:00)
[2022-08-03] MEDS: GUAIFENESIN/DM 600MG/30MG ER TAB 12HR PO SCH ×2 (09:42→19:21)
[2022-08-03] MEDS: FUROSEMIDE 40MG/4ML VIAL IVP SCH ×2 (10:40→20:54)
[2022-08-03] MEDS: ENOXAPARIN 30MG/0.3ML SYR SUBCUT SCH (15:00)
[2022-08-03 16:00] VITALS: BP 115/91
[2022-08-03 20:00] VITALS: BP 122/83
[2022-08-03] MEDS: FAMOTIDINE 20MG TABLET PO SCH (20:54)
[2022-08-03] MEDS: ASCORBIC ACID 500 MG TABLET PO SCH (21:00)
[2022-08-03 22:07] LABS: BASOPHILS % 0.8 % (0.0-2.0); EOSINOPHILS % 1.4 % (0.0-5.0); HEMATOCRIT. 42.7 % (36.0-48.0); HEMOGLOBIN. 13.9 g/dL (12.0-16.0); LYMPHOCYTES % 21.9 % (20.0-50.0); MEAN PLATELET VOLUME 9.3 fl (7.4-10.4); MONOCYTES % 6.1 % (2.0-8.0); NEUTROPHILS % 69.8 % (40.0-76.0); PLATELET 228 x1000/uL (130-400); RED BLOOD CELL COUNT 4.36 mill/uL (4.2-5.4); RED CELL DISTRIBUTION WIDTH 15.7 % (11.6-14.6)
[2022-08-03 22:16] LABS: CHLORIDE 109 mEq/L (98-107)
[2022-08-03 22:30] LABS: T4 FREE 0.3 ng/dL (0.76-1.46)
[2022-08-03 22:46] LABS: VITAMIN B12 SERUM 704 pg/mL (211-911)
[2022-08-03 23:07] LABS: CREATINE KINASE MB FRACTION 1.8 ng/mL (0.5-3.6)
[2022-08-04] VITALS: BP 128/86
[2022-08-04 04:00] VITALS: BP 136/85
[2022-08-04] MEDS: AZITHROMYCIN 500 MG in DEXT 5% WATER 250 ML IV SCH (05:59)
[2022-08-04] MEDS: CEFTRIAXONE 1,000 MG in DEXTROSE 5% WATER 50 ML IV SCH (06:00)
[2022-08-04] MEDS ORDERED: AZITHROMYCIN 500 MG in DEXT 5% WATER 250 ML IV SCH (06:00)
[2022-08-04] MEDS: GUAIFENESIN/DM 600MG/30MG ER TAB 12HR PO SCH ×2 (06:00→18:03)
[2022-08-04 08:00] VITALS: BP 110/64
[2022-08-04] MEDS: FUROSEMIDE 40MG/4ML VIAL IVP SCH ×3 (10:01→21:58)
[2022-08-04] MEDS: ASCORBIC ACID 500 MG TABLET PO SCH ×3 (10:09→21:58)
[2022-08-04] MEDS: ZINC SULFATE 220 MG ( 50 ) CAPSULE PO SCH ×2 (10:09→10:10)
[2022-08-04 12:39] LABS: BASOPHILS % 0.7 % (0.0-2.0); EOSINOPHILS % 1.1 % (0.0-5.0); HEMOGLOBIN. 13.8 g/dL (12.0-16.0); LYMPHOCYTES % 19.7 % (20.0-50.0); MEAN CORPUSCULAR VOLUME 97.2 fL (81.0-99.0); MEAN PLATELET VOLUME 9.3 fl (7.4-10.4); NEUTROPHILS % 71.5 % (40.0-76.0); PLATELET 229 x1000/uL (130-400); RED BLOOD CELL COUNT 4.32 mill/uL (4.2-5.4); RED CELL DISTRIBUTION WIDTH 15.6 % (11.6-14.6)
[2022-08-04 14:36] LABS: CHLORIDE 107 mEq/L (98-107)
[2022-08-04 14:49] LABS: PHOSPHORUS 3.4 mg/dL (2.5-4.9)
[2022-08-04 20:00] VITALS: BP 130/79
[2022-08-04] MEDS: FAMOTIDINE 20MG TABLET PO SCH ×2 (21:00→21:58)
[2022-08-05 04:00] VITALS: BP 119/72
[2022-08-05] MEDS: AZITHROMYCIN 500 MG in DEXT 5% WATER 250 ML IV SCH (06:15)
[2022-08-05] MEDS: GUAIFENESIN/DM 600MG/30MG ER TAB 12HR PO SCH ×2 (06:16→18:27)
[2022-08-05] MEDS: CEFTRIAXONE 1,000 MG in DEXTROSE 5% WATER 50 ML IV SCH (07:28)
[2022-08-05] MEDS: FUROSEMIDE 40MG/4ML VIAL IVP SCH ×2 (09:00→21:00)
[2022-08-05] MEDS: ZINC SULFATE 220 MG ( 50 ) CAPSULE PO SCH (09:00)
[2022-08-05] MEDS: ASCORBIC ACID 500 MG TABLET PO SCH ×2 (09:00→21:00)
[2022-08-05] MEDS: ASPIRIN 81MG EC TABLET PO SCH (09:00)
[2022-08-05] MEDS: SPIRONOLACTONE 25MG TABLET PO SCH (09:00)
[2022-08-05 10:00] VITALS: BP 123/73
[2022-08-05] MEDS ORDERED: METOLAZONE 10MG TABLET PO NR (13:45)
[2022-08-05] MEDS: ENOXAPARIN 30MG/0.3ML SYR SUBCUT SCH (15:00)
[2022-08-05] MEDS: FAMOTIDINE 20MG TABLET PO SCH (21:00)
[2022-08-05] MEDS: CARVEDILOL 3.125 MG TABLET PO SCH (21:00)
[2022-08-06] MEDS: AZITHROMYCIN 500 MG in DEXT 5% WATER 250 ML IV SCH (05:14)
[2022-08-06] MEDS: GUAIFENESIN/DM 600MG/30MG ER TAB 12HR PO SCH ×2 (05:14→18:30)
[2022-08-06] MEDS: CEFTRIAXONE 1,000 MG in DEXTROSE 5% WATER 50 ML IV SCH (06:46)
[2022-08-06 07:47] LABS: BASOPHILS % 0.6 % (0.0-2.0); EOSINOPHILS % 2.1 % (0.0-5.0); HEMATOCRIT. 38.2 % (36.0-48.0); HEMOGLOBIN. 12.6 g/dL (12.0-16.0); LYMPHOCYTES % 21.8 % (20.0-50.0); MEAN CORPUSCULAR HEMOGLOBIN 31.9 pg (28.0-32.0); MEAN CORPUSCULAR VOLUME 97.1 fL (81.0-99.0); MEAN PLATELET VOLUME 9.2 fl (7.4-10.4); MONOCYTES % 6.5 % (2.0-8.0); PLATELET 213 x1000/uL (130-400); RED BLOOD CELL COUNT 3.93 mill/uL (4.2-5.4); RED CELL DISTRIBUTION WIDTH 15.4 % (11.6-14.6)
[2022-08-06 08:00] VITALS: BP 123/78
[2022-08-06 08:02] LABS: CHLORIDE 106 mEq/L (98-107)
[2022-08-06 08:08] LABS: PHOSPHORUS 3.1 mg/dL (2.5-4.9)
[2022-08-06] MEDS: ASPIRIN 81MG EC TABLET PO SCH (09:00)
[2022-08-06] MEDS: ASCORBIC ACID 500 MG TABLET PO SCH ×2 (09:00→21:00)
[2022-08-06] MEDS: ZINC SULFATE 220 MG ( 50 ) CAPSULE PO SCH (09:00)
[2022-08-06] MEDS: FUROSEMIDE 40MG/4ML VIAL IVP SCH ×2 (09:00→21:00)
[2022-08-06] MEDS: SPIRONOLACTONE 25MG TABLET PO SCH (09:00)
[2022-08-06] MEDS: CARVEDILOL 3.125 MG TABLET PO SCH ×2 (09:00→21:00)
[2022-08-06] MEDS: ENOXAPARIN 30MG/0.3ML SYR SUBCUT SCH (15:00)
[2022-08-06] MEDS: FAMOTIDINE 20MG TABLET PO SCH (21:00)
[2022-08-06] MEDS: ATORVASTATIN CALCIUM 40MG TABLET PO SCH (21:00)
[2022-08-07] MEDS: GUAIFENESIN/DM 600MG/30MG ER TAB 12HR PO SCH ×2 (05:42→18:28)
[2022-08-07] MEDS: CEFTRIAXONE 1,000 MG in DEXTROSE 5% WATER 50 ML IV SCH (05:42)
[2022-08-07 08:00] VITALS: BP 136/86
[2022-08-07] MEDS: CARVEDILOL 3.125 MG TABLET PO SCH ×2 (08:19→20:40)
[2022-08-07] MEDS: ASCORBIC ACID 500 MG TABLET PO SCH ×2 (08:19→20:40)
[2022-08-07] MEDS: ASPIRIN 81MG EC TABLET PO SCH (08:19)
[2022-08-07] MEDS: SPIRONOLACTONE 25MG TABLET PO SCH (08:20)
[2022-08-07] MEDS: FUROSEMIDE 40MG/4ML VIAL IVP SCH ×5 (08:20→21:38)
[2022-08-07] MEDS: ZINC SULFATE 220 MG ( 50 ) CAPSULE PO SCH (08:20)
[2022-08-07] MEDS ORDERED: AZITHROMYCIN 500 MG TABLET PO SCH (09:00)
[2022-08-07 11:52] VITALS: BP 133/83
[2022-08-07 12:00] VITALS: BP 128/80
[2022-08-07] MEDS ORDERED: METOLAZONE 10MG TABLET PO NR (12:30)
[2022-08-07] MEDS ORDERED: FURO80TA87 MT (12:48)
[2022-08-07] MEDS: ENOXAPARIN 30MG/0.3ML SYR SUBCUT SCH (15:00)
[2022-08-07] MEDS: ATORVASTATIN CALCIUM 40MG TABLET PO SCH (20:40)
[2022-08-07] MEDS: FAMOTIDINE 20MG TABLET PO SCH (20:40)
[2022-08-08] MEDS: CEFTRIAXONE 1,000 MG in DEXTROSE 5% WATER 50 ML IV SCH (05:44)
[2022-08-08] MEDS: GUAIFENESIN/DM 600MG/30MG ER TAB 12HR PO SCH (05:44)
[2022-08-08] MEDS: FUROSEMIDE 40MG/4ML VIAL IVP SCH (05:44)
[2022-08-08 08:00] VITALS: BP 133/83
[2022-08-08] MEDS: ASCORBIC ACID 500 MG TABLET PO SCH (09:00)
[2022-08-08] MEDS: CARVEDILOL 3.125 MG TABLET PO SCH (09:00)
[2022-08-08] MEDS: SPIRONOLACTONE 25MG TABLET PO SCH (09:00)
[2022-08-08] MEDS: ASPIRIN 81MG EC TABLET PO SCH (09:00)
[2022-08-08] MEDS ORDERED: FUROSEMIDE 20MG TABLET PO SCH (09:00)
[2022-08-08] MEDS: ZINC SULFATE 220 MG ( 50 ) CAPSULE PO SCH (09:00)
== END 2022-08-08 12:30 | disposition home health service (06) | DRG 189 ==
LOC: ER 23:49 → 7WST 08-03 04:59 → EDBEDREQ 08-03 05:27 → ENRESERV 08-03 13:54
PROVIDERS: ADMIT Internal Medicine; ATTEND Internal Medicine
DX: J96.01 Acute respiratory failure with hypoxia (principal); I50.43 Acute on chronic combined systolic (congestive) and diastolic (congestive) heart failure; J18.9 Pneumonia, unspecified organism; N17.9 Acute kidney failure, unspecified; J44.0 Chronic obstructive pulmonary disease with (acute) lower respiratory infection; I42.0 Dilated cardiomyopathy; I11.0 Hypertensive heart disease with heart failure; I27.21 Secondary pulmonary arterial hypertension; I37.1 Nonrheumatic pulmonary valve insufficiency; I71.23 Aneurysm of the descending thoracic aorta, without rupture; J44.9 Chronic obstructive pulmonary disease, unspecified; M54.16 Radiculopathy, lumbar region; M48.061 Spinal stenosis, lumbar region without neurogenic claudication; I44.7 Left bundle-branch block, unspecified; G89.29 Other chronic pain; M54.30 Sciatica, unspecified side; E78.5 Hyperlipidemia, unspecified; E03.9 Hypothyroidism, unspecified; E78.00 Pure hypercholesterolemia, unspecified; Z88.8 Allergy status to other drugs, medicaments and biological substances; Z79.899 Other long term (current) drug therapy; Z91.199 Patient's noncompliance with other medical treatment and regimen due to unspecified reason; Z91.14 Patient's other noncompliance with medication regimen; Z82.49 Family history of ischemic heart disease and other diseases of the circulatory system
CPT/HCPCS: 36415; 71045; 80048; 80053; 82550; 82553; 82607; 82746; 83036; 83540; 83550; 83605; 83735; 83880; 84100; 84145; 84439; 84443; 84484; 85025; 87426; 87804; 93005; 93970; 97162; 97166; 99285; C9803; J0456; J0696; J1650; J1940; J7060

== ENCOUNTER 2022-09-28 21:25 | Emergency (ER) | payer MEDICARE, MEDICAID ==
[~2022-09-28] VITALS: Ht 162.6 cm; Wt 65.5 kg
[~2022-09-28 21:25] MED LIST changes: -FURO-151 MT; +FURO80TA87 MT; -METO2.5T2 MT; -UMEC1DIS IH
[2022-09-29] MEDS ORDERED: ASPIRIN 81MG TABLET PO ONE (03:00)
[2022-09-29] MEDS ORDERED: FUROSEMIDE 40MG/4 ML UDC PO ONE (03:00)
[2022-09-29 03:30] LABS: BASOPHILS % 1.4 % (0.0-2.0); EOSINOPHILS % 0.6 % (0.0-5.0); HEMATOCRIT. 41.6 % (36.0-48.0); HEMOGLOBIN. 13.6 g/dL (12.0-16.0); LYMPHOCYTES % 15.4 % (20.0-50.0); MEAN CORPUSCULAR HEMOGLOBIN 30.9 pg (28.0-32.0); MEAN CORPUSCULAR VOLUME 94.6 fL (81.0-99.0); MEAN PLATELET VOLUME 8.5 fl (7.4-10.4); MONOCYTES % 6.9 % (2.0-8.0); NEUTROPHILS % 75.7 % (40.0-76.0); PLATELET 211 x1000/uL (130-400); RED BLOOD CELL COUNT 4.39 mill/uL (4.2-5.4); RED CELL DISTRIBUTION WIDTH 16.7 % (11.6-14.6)
[2022-09-29 03:39] LABS: CHLORIDE 108 mEq/L (98-107)
[2022-09-29] MEDS ORDERED: FUROSEMIDE 40MG TABLET PO NR (04:00)
[2022-09-29 04:13] VITALS: BP 140/86
== END 2022-09-29 05:20 | disposition home or self-care (01) ==
LOC: ER 21:37
DX: I11.0 Hypertensive heart disease with heart failure (principal); I50.9 Heart failure, unspecified; I44.7 Left bundle-branch block, unspecified; Z79.899 Other long term (current) drug therapy; Z91.041 Radiographic dye allergy status
CPT/HCPCS: 36415; 71045; 80053; 83880; 84484; 85025; 93005; 99285; J1940

== ENCOUNTER 2023-01-25 22:53 | Emergency (ER) | payer MEDICARE, MEDICAID ==
[~2023-01-25] VITALS: Ht 160 cm; Wt 73.0 kg
[2023-01-26] MEDS: FUROSEMIDE 40MG/4ML VIAL IVP ONE
[2023-01-26 05:29] LABS: BASOPHILS % 1.3 % (0.0-2.0); EOSINOPHILS % 0.7 % (0.0-5.0); HEMATOCRIT. 49.3 % (36.0-48.0); HEMOGLOBIN. 15.8 g/dL (12.0-16.0); LYMPHOCYTES % 14.9 % (20.0-50.0); MEAN CORPUSCULAR HEMOGLOBIN 32.9 pg (28.0-32.0); MEAN CORPUSCULAR VOLUME 102.8 fL (81.0-99.0); MONOCYTES % 8.1 % (2.0-8.0); PLATELET 176 x1000/uL (130-400); RED CELL DISTRIBUTION WIDTH 18.5 % (11.6-14.6)
[2023-01-26 05:43] LABS: CHLORIDE 110 mEq/L (98-107)
[2023-01-26 05:51] LABS: ETHANOL BLOOD < 10 mg/dL (-10)
[2023-01-26 06:03] VITALS: BP 149/89
== END 2023-01-26 07:21 | disposition home or self-care (01) ==
LOC: ER 22:53
DX: I11.0 Hypertensive heart disease with heart failure (principal); I50.9 Heart failure, unspecified; R45.851 Suicidal ideations; J44.9 Chronic obstructive pulmonary disease, unspecified; E78.00 Pure hypercholesterolemia, unspecified; I10 Essential (primary) hypertension; Z79.82 Long term (current) use of aspirin; Z79.899 Other long term (current) drug therapy; Z88.8 Allergy status to other drugs, medicaments and biological substances
CPT/HCPCS: 36415; 80053; 80307; 80320; 80329; 83880; 84484; 85025; 96374; 99285; J1940; G0480

== ENCOUNTER 2023-01-28 03:47 | Inpatient (IN) | payer MEDICARE, MEDICAID ==
[~2023-01-28] VITALS: Ht 157.5 cm; Wt 73.9 kg
[2023-01-28] MEDS ORDERED: ACETAMINOPHEN 325MG TABLET PO ONE (04:00)
[2023-01-28 04:45] LABS: HEMATOCRIT. 42.3 % (36.0-48.0); HEMOGLOBIN. 13.9 g/dL (12.0-16.0); MEAN CORPUSCULAR HEMOGLOBIN 32.6 pg (28.0-32.0); MEAN CORPUSCULAR VOLUME 98.9 fL (81.0-99.0); MEAN PLATELET VOLUME 8.4 fl (7.4-10.4); PLATELET 171 x1000/uL (130-400); RED BLOOD CELL COUNT 4.28 mill/uL (4.2-5.4); RED CELL DISTRIBUTION WIDTH 17.1 % (11.6-14.6)
[2023-01-28 05:08] LABS: CHLORIDE 106 mEq/L (98-107)
[2023-01-28 05:18] LABS: ETHANOL BLOOD < 10 mg/dL (-10)
[2023-01-28] MEDS ORDERED: ASPIRIN 81MG TABLET PO ONE (05:30)
[2023-01-28] MEDS ORDERED: FUROSEMIDE 40MG/4ML VIAL IV ONE (05:30)
[2023-01-28 05:38] LABS: PLATELET ESTIMATE NORMAL
[2023-01-28] MEDS ORDERED: ACETAMINOPHEN 325MG TABLET PO PRN (06:45)
[2023-01-28] MEDS ORDERED: GUAIFENESIN 200MG/10ML SUGAR FREE UDC PO PRN (06:45)
[2023-01-28] MEDS ORDERED: MAGNESIUM/ALUMINUM HYDROXIDE/SIMETHICONE 30ML UDC PO PRN (06:45)
[2023-01-28] MEDS ORDERED: CLONIDINE 0.1MG TABLET PO PRN (06:45)
[2023-01-28] MEDS ORDERED: IPRATROPIUM/ALBUTEROL 0.5-3(2.5)MG/3ML NEB NEB PRN (06:45)
[2023-01-28] MEDS ORDERED: DOCUSATE SODIUM 100MG CAPSULE PO PRN (06:45)
[2023-01-28] MEDS ORDERED: ONDANSETRON HCL 4MG/2ML INJ IV PRN (06:45)
[2023-01-28] MEDS ORDERED: NITROGLYCERIN 0.4MG TABLET SL SL PRN (06:45)
[2023-01-28] MEDS ORDERED: ENOXAPARIN 60MG/0.6ML SYR SUBCUT NR (07:00)
[2023-01-28 07:28] LABS: INR 1.2
[2023-01-28 07:40] LABS: T4 FREE 0.28 ng/dL (0.76-1.46)
[2023-01-28] MEDS ORDERED: LEVOTHYROXINE SODIUM 112MCG TABLET PO SCH (07:50)
[2023-01-28] MEDS: FUROSEMIDE 40MG/4ML VIAL IVP SCH ×2 (09:00→20:36)
[2023-01-28] MEDS ORDERED: LOSARTAN POTASSIUM 50 MG TABLET PO SCH (09:00)
[2023-01-28] MEDS: FAMOTIDINE 20MG TABLET PO SCH (09:00)
[2023-01-28] MEDS ORDERED: POTASSIUM CHLORIDE 20MEQ TABLET SR PO NR (11:15)
[2023-01-28] MEDS ORDERED: NON FORMULARY PATIENT HOME MED XX SCH (11:15)
[2023-01-28 12:00] VITALS: BP 129/78; PULSE 59; PULSE 60; RESP 18; TEMP 97.2
[2023-01-28] MEDS ORDERED: SACUBITRIL/VALSARTAN 24MG/26MG TABLET PO SCH (12:00)
[2023-01-28 16:00] VITALS: BP 135/73; PULSE 57; RESP 18; TEMP 97.6
[2023-01-28] MEDS: SPIRONOLACTONE 25MG TABLET PO SCH ×2 (16:20→20:38)
[2023-01-28] MEDS: ENOXAPARIN 60MG/0.6ML SYR SUBCUT NR ×2 (16:21→20:39)
[2023-01-28] MEDS: LEVOTHYROXINE SODIUM 112MCG TABLET PO SCH (16:26)
[2023-01-28 17:46] LABS: CREATINE KINASE MB FRACTION 1.7 ng/mL (0.5-3.6)
[2023-01-28] MEDS: SACUBITRIL/VALSARTAN 24MG/26MG TABLET PO SCH (17:47)
[2023-01-28 20:00] VITALS: BP 120/70; PULSE 62; RESP 18; TEMP 97.3
[2023-01-28] MEDS: CARVEDILOL 3.125 MG TABLET PO SCH (20:38)
[2023-01-28] MEDS: ATORVASTATIN CALCIUM 40MG TABLET PO SCH (20:38)
[2023-01-29] VITALS: BP 121/71; PULSE 61; RESP 20; TEMP 97.5
[2023-01-29 00:03] LABS: CREATINE KINASE MB FRACTION 1.2 ng/mL (0.5-3.6)
[2023-01-29 04:00] VITALS: BP 137/53; PULSE 61; RESP 19; TEMP 97.2
[2023-01-29] MEDS: LEVOTHYROXINE SODIUM 112MCG TABLET PO SCH (07:57)
[2023-01-29 08:00] VITALS: BP 117/66; PULSE 60; RESP 18; TEMP 97.6
[2023-01-29] MEDS: CARVEDILOL 3.125 MG TABLET PO SCH ×2 (09:00→21:00)
[2023-01-29] MEDS: SPIRONOLACTONE 25MG TABLET PO SCH ×2 (09:23→21:00)
[2023-01-29] MEDS: FUROSEMIDE 40MG/4ML VIAL IVP SCH ×2 (09:23→21:00)
[2023-01-29] MEDS: SACUBITRIL/VALSARTAN 24MG/26MG TABLET PO SCH ×2 (09:24→17:07)
[2023-01-29] MEDS: ENOXAPARIN 60MG/0.6ML SYR SUBCUT NR ×2 (09:24→21:00)
[2023-01-29] MEDS: ASPIRIN 325MG EC TABLET PO SCH (09:24)
[2023-01-29] MEDS: FAMOTIDINE 20MG TABLET PO SCH (09:26)
[2023-01-29 12:00] VITALS: BP 120/65; PULSE 62; RESP 18; TEMP 97.2
[2023-01-29 16:00] VITALS: BP 112/71; PULSE 69; RESP 18; TEMP 96.8
[2023-01-29] MEDS: ACETAMINOPHEN 325MG TABLET PO PRN ×2 (17:07→22:29)
[2023-01-29 17:09] LABS: BASOPHILS % 0.6 % (0.0-2.0); EOSINOPHILS % 0.5 % (0.0-5.0); HEMATOCRIT. 43.2 % (36.0-48.0); HEMOGLOBIN. 14.4 g/dL (12.0-16.0); MEAN CORPUSCULAR VOLUME 98.7 fL (81.0-99.0); MEAN PLATELET VOLUME 8.8 fl (7.4-10.4); MONOCYTES % 5.5 % (2.0-8.0); NEUTROPHILS % 81.4 % (40.0-76.0); PLATELET 185 x1000/uL (130-400); RED BLOOD CELL COUNT 4.38 mill/uL (4.2-5.4); RED CELL DISTRIBUTION WIDTH 17.3 % (11.6-14.6)
[2023-01-29 17:29] LABS: CHLORIDE 98 mEq/L (98-107)
[2023-01-29 17:37] LABS: HDL CHOLESTEROL 68 mg/dL (40-59); LDL CHOLESTEROL 178 mg/dL (5-100); PHOSPHORUS 2.2 mg/dL (2.5-4.9)
[2023-01-29] MEDS: ATORVASTATIN CALCIUM 40MG TABLET PO SCH (21:00)
[2023-01-30 08:00] VITALS: BP 91/51; PULSE 63; RESP 18; TEMP 98
[2023-01-30] MEDS: SPIRONOLACTONE 25MG TABLET PO SCH ×2 (09:00→21:00)
[2023-01-30] MEDS: SACUBITRIL/VALSARTAN 24MG/26MG TABLET PO SCH ×2 (09:00→17:00)
[2023-01-30] MEDS: CARVEDILOL 3.125 MG TABLET PO SCH ×2 (09:00→21:00)
[2023-01-30] MEDS: ASPIRIN 325MG EC TABLET PO SCH (09:03)
[2023-01-30] MEDS: LEVOTHYROXINE SODIUM 112MCG TABLET PO SCH (09:03)
[2023-01-30] MEDS: FUROSEMIDE 40MG/4ML VIAL IVP SCH ×2 (09:03→21:00)
[2023-01-30] MEDS: FAMOTIDINE 20MG TABLET PO SCH (09:03)
[2023-01-30] MEDS: ENOXAPARIN 60MG/0.6ML SYR SUBCUT NR ×2 (09:03→21:00)
[2023-01-30] MEDS ORDERED: MAGNESIUM HYDROXIDE 400MG/5ML 30ML UDC PO NR (10:30)
[2023-01-30] MEDS ORDERED: MINERAL OIL ENEMA 133ML PR NR (10:30)
[2023-01-30 10:40] LABS: BASOPHILS % 0.6 % (0.0-2.0); EOSINOPHILS % 0.2 % (0.0-5.0); HEMATOCRIT. 47.1 % (36.0-48.0); HEMOGLOBIN. 15.9 g/dL (12.0-16.0); LYMPHOCYTES % 8.8 % (20.0-50.0); MEAN CORPUSCULAR HEMOGLOBIN 33.3 pg (28.0-32.0); MEAN CORPUSCULAR VOLUME 98.5 fL (81.0-99.0); MEAN PLATELET VOLUME 9.2 fl (7.4-10.4); MONOCYTES % 5.2 % (2.0-8.0); NEUTROPHILS % 85.2 % (40.0-76.0); PLATELET 179 x1000/uL (130-400); RED BLOOD CELL COUNT 4.78 mill/uL (4.2-5.4); RED CELL DISTRIBUTION WIDTH 16.7 % (11.6-14.6)
[2023-01-30 10:46] LABS: CHLORIDE 102 mEq/L (98-107)
[2023-01-30 12:00] VITALS: BP 78/35; PULSE 68; RESP 18; TEMP 97.6
[2023-01-30 16:00] VITALS: BP 98/50; PULSE 69; RESP 18; TEMP 96.8
[2023-01-30] MEDS: ATORVASTATIN CALCIUM 40MG TABLET PO SCH (21:00)
[2023-01-30] MEDS: ZOLPIDEM TARTRATE 5MG TABLET PO PRN (22:09)
[2023-01-30] MEDS: ACETAMINOPHEN 325MG TABLET PO PRN (22:09)
[2023-01-31] VITALS: BP 105/53; PULSE 61; RESP 18; TEMP 97.3
[2023-01-31 05:31] LABS: BASOPHILS % 0.5 % (0.0-2.0); EOSINOPHILS % 0.5 % (0.0-5.0); HEMATOCRIT. 40.7 % (36.0-48.0); HEMOGLOBIN. 13.8 g/dL (12.0-16.0); LYMPHOCYTES % 11.6 % (20.0-50.0); MEAN CORPUSCULAR HEMOGLOBIN 33.4 pg (28.0-32.0); MEAN CORPUSCULAR VOLUME 98.4 fL (81.0-99.0); MEAN PLATELET VOLUME 8.9 fl (7.4-10.4); MONOCYTES % 6.1 % (2.0-8.0); NEUTROPHILS % 81.3 % (40.0-76.0); PLATELET 162 x1000/uL (130-400); RED BLOOD CELL COUNT 4.13 mill/uL (4.2-5.4); RED CELL DISTRIBUTION WIDTH 17.1 % (11.6-14.6)
[2023-01-31 06:22] LABS: CHLORIDE 101 mEq/L (98-107)
[2023-01-31] MEDS: LEVOTHYROXINE SODIUM 112MCG TABLET PO SCH (07:40)
[2023-01-31 08:00] VITALS: BP 111/57; PULSE 60; RESP 20; TEMP 97.7
[2023-01-31] MEDS: FUROSEMIDE 40MG/4ML VIAL IVP SCH ×2 (09:00→21:28)
[2023-01-31] MEDS: SACUBITRIL/VALSARTAN 24MG/26MG TABLET PO SCH ×2 (09:00→17:00)
[2023-01-31] MEDS: ASPIRIN 325MG EC TABLET PO SCH (09:00)
[2023-01-31] MEDS: CARVEDILOL 3.125 MG TABLET PO SCH ×2 (09:00→20:58)
[2023-01-31] MEDS: SPIRONOLACTONE 25MG TABLET PO SCH ×2 (09:00→20:58)
[2023-01-31] MEDS: FAMOTIDINE 20MG TABLET PO SCH (09:31)
[2023-01-31] MEDS: ENOXAPARIN 60MG/0.6ML SYR SUBCUT NR (09:36)
[2023-01-31 12:00] VITALS: BP 104/61; PULSE 62; RESP 20; TEMP 98.8
[2023-01-31 12:31] VITALS: BP 104/61; PULSE 62; TEMP 98.8; O2SAT 97
[2023-01-31] MEDS ORDERED: METOLAZONE 5MG TABLET PO NR (20:30)
[2023-01-31 20:56] VITALS: BP 108/62
[2023-01-31] MEDS: ATORVASTATIN CALCIUM 40MG TABLET PO SCH (21:30)
[2023-01-31] MEDS: ENOXAPARIN 80MG/0.8ML SYR SUBCUT SCH (21:32)
[2023-02-01 04:00] VITALS: BP 95/55; PULSE 66; RESP 19; TEMP 97.7
[2023-02-01 05:35] LABS: EOSINOPHILS % 0.5 % (0.0-5.0); HEMATOCRIT. 40.9 % (36.0-48.0); HEMOGLOBIN. 13.6 g/dL (12.0-16.0); LYMPHOCYTES % 10.5 % (20.0-50.0); MEAN CORPUSCULAR HEMOGLOBIN 33.1 pg (28.0-32.0); MEAN CORPUSCULAR VOLUME 99.6 fL (81.0-99.0); MONOCYTES % 7.2 % (2.0-8.0); NEUTROPHILS % 80.8 % (40.0-76.0); RED BLOOD CELL COUNT 4.11 mill/uL (4.2-5.4); RED CELL DISTRIBUTION WIDTH 17.1 % (11.6-14.6)
[2023-02-01 07:43] LABS: CHLORIDE 99 mEq/L (98-107)
[2023-02-01 08:00] VITALS: BP 115/61; PULSE 60; RESP 18; TEMP 97.1
[2023-02-01] MEDS: SPIRONOLACTONE 25MG TABLET PO SCH ×2 (09:00→21:00)
[2023-02-01] MEDS: CARVEDILOL 3.125 MG TABLET PO SCH ×2 (09:00→21:00)
[2023-02-01] MEDS: FUROSEMIDE 40MG/4ML VIAL IVP SCH ×2 (09:16→21:24)
[2023-02-01] MEDS: SACUBITRIL/VALSARTAN 24MG/26MG TABLET PO SCH ×2 (09:18→17:00)
[2023-02-01] MEDS: FAMOTIDINE 20MG TABLET PO SCH (09:18)
[2023-02-01] MEDS: LEVOTHYROXINE SODIUM 112MCG TABLET PO SCH (09:19)
[2023-02-01] MEDS: ENOXAPARIN 80MG/0.8ML SYR SUBCUT SCH ×2 (09:19→21:24)
[2023-02-01] MEDS: ASPIRIN 325MG EC TABLET PO SCH (09:22)
[2023-02-01 10:36] LABS: MEAN PLATELET VOLUME 9.5 fl (7.4-10.4); PLATELET 151 x1000/uL (130-400)
[2023-02-01 12:00] VITALS: BP 100/68; PULSE 60; RESP 15; TEMP 97.8
[2023-02-01 16:00] VITALS: BP 105/65; PULSE 61; RESP 16; TEMP 96.8
[2023-02-01 20:00] VITALS: BP 103/48; PULSE 67; RESP 18; TEMP 96.3
[2023-02-01] MEDS: ATORVASTATIN CALCIUM 40MG TABLET PO SCH (21:23)
[2023-02-01] MEDS: ACETAMINOPHEN 325MG TABLET PO PRN (21:24)
[2023-02-01] MEDS: ZOLPIDEM TARTRATE 5MG TABLET PO PRN (21:24)
[2023-02-02] VITALS: BP 99/52; PULSE 60; RESP 20; TEMP 97.5
[2023-02-02 04:00] VITALS: BP 111/58; PULSE 59; RESP 20; TEMP 97.2
[2023-02-02] MEDS: LEVOTHYROXINE SODIUM 112MCG TABLET PO SCH (07:20)
[2023-02-02] MEDS: SACUBITRIL/VALSARTAN 24MG/26MG TABLET PO SCH (09:00)
[2023-02-02] MEDS: FAMOTIDINE 20MG TABLET PO SCH (09:00)
[2023-02-02] MEDS: ASPIRIN 325MG EC TABLET PO SCH (09:00)
[2023-02-02] MEDS: CARVEDILOL 3.125 MG TABLET PO SCH (21:00)
[2023-02-02] MEDS: SPIRONOLACTONE 25MG TABLET PO SCH (21:00)
[2023-02-02] MEDS: ATORVASTATIN CALCIUM 40MG TABLET PO SCH (22:15)
[2023-02-02] MEDS: FUROSEMIDE 40MG/4ML VIAL IVP SCH (22:15)
[2023-02-02] MEDS: ENOXAPARIN 80MG/0.8ML SYR SUBCUT SCH (22:16)
[2023-02-03] VITALS: BP 102/45; PULSE 56; RESP 20; TEMP 96.3
[2023-02-03 04:00] VITALS: BP 106/58; PULSE 58; RESP 20; TEMP 97.1
[2023-02-03] MEDS: ACETAMINOPHEN 325MG TABLET PO PRN (06:35)
[2023-02-03] MEDS: LEVOTHYROXINE SODIUM 112MCG TABLET PO SCH (07:20)
[2023-02-03] MEDS: ASPIRIN 325MG EC TABLET PO SCH (09:00)
[2023-02-03] MEDS: SPIRONOLACTONE 25MG TABLET PO SCH ×2 (09:00→21:00)
[2023-02-03] MEDS: FAMOTIDINE 20MG TABLET PO SCH (09:00)
[2023-02-03] MEDS: ENOXAPARIN 80MG/0.8ML SYR SUBCUT SCH ×3 (09:00→21:00)
[2023-02-03] MEDS: CARVEDILOL 3.125 MG TABLET PO SCH ×2 (09:00→20:58)
[2023-02-03] MEDS: FUROSEMIDE 40MG/4ML VIAL IVP SCH ×2 (09:00→20:50)
[2023-02-03 12:00] VITALS: BP 106/54; PULSE 59; RESP 20; TEMP 97.8
[2023-02-03 16:00] VITALS: BP 106/54; PULSE 59; RESP 20; TEMP 97.8
[2023-02-03 20:00] VITALS: BP 101/61; PULSE 65; RESP 20; TEMP 98.7
[2023-02-03] MEDS: ATORVASTATIN CALCIUM 40MG TABLET PO SCH (20:57)
[2023-02-04] VITALS: BP 110/60; PULSE 56; RESP 20; TEMP 98.4
[2023-02-04 04:00] VITALS: BP 116/61; PULSE 56; RESP 19; TEMP 98.5
[2023-02-04 08:00] VITALS: BP 104/56; PULSE 68; RESP 21; TEMP 98.6
[2023-02-04] MEDS: LEVOTHYROXINE SODIUM 112MCG TABLET PO SCH (08:48)
[2023-02-04] MEDS: ASPIRIN 325MG EC TABLET PO SCH (08:49)
[2023-02-04] MEDS: CARVEDILOL 3.125 MG TABLET PO SCH (09:00)
[2023-02-04] MEDS: SPIRONOLACTONE 25MG TABLET PO SCH (09:00)
[2023-02-04] MEDS: ENOXAPARIN 80MG/0.8ML SYR SUBCUT SCH (09:00)
[2023-02-04] MEDS: FUROSEMIDE 40MG/4ML VIAL IVP SCH (09:00)
[2023-02-04] MEDS: FAMOTIDINE 20MG TABLET PO SCH (09:00)
[2023-02-04 10:09] VITALS: BP 104/56; PULSE 68; TEMP 98.6; O2SAT 94
== END 2023-02-04 13:48 | disposition home health service (06) | DRG 280 ==
LOC: ER 03:47 → 7WST 06:16 → EDBEDREQTM 06:20 → EDBEDREQ 06:20 → SUPCPDRO 06:35 → 7WST 18:34 → 6EST 02-01 09:47
PROVIDERS: ADMIT Internal Medicine; ATTEND Internal Medicine
DX: I11.0 Hypertensive heart disease with heart failure (principal); I50.43 Acute on chronic combined systolic (congestive) and diastolic (congestive) heart failure; I21.4 Non-ST elevation (NSTEMI) myocardial infarction; J96.20 Acute and chronic respiratory failure, unspecified whether with hypoxia or hypercapnia; E44.1 Mild protein-calorie malnutrition; E87.6 Hypokalemia; I27.21 Secondary pulmonary arterial hypertension; E78.00 Pure hypercholesterolemia, unspecified; E03.9 Hypothyroidism, unspecified; J44.9 Chronic obstructive pulmonary disease, unspecified; M54.30 Sciatica, unspecified side; M48.061 Spinal stenosis, lumbar region without neurogenic claudication; I71.23 Aneurysm of the descending thoracic aorta, without rupture; I44.7 Left bundle-branch block, unspecified; I42.0 Dilated cardiomyopathy; I08.0 Rheumatic disorders of both mitral and aortic valves; I87.8 Other specified disorders of veins; R73.03 Prediabetes; Z91.199 Patient's noncompliance with other medical treatment and regimen due to unspecified reason; Z88.8 Allergy status to other drugs, medicaments and biological substances; Z68.29 Body mass index [BMI] 29.0-29.9, adult
CPT/HCPCS: 36415; 71045; 80048; 80053; 80061; 80307; 80320; 80329; 82550; 82553; 83036; 83735; 83880; 84100; 84439; 84443; 84484; 85025; 93005; 93306; 93970; 96374; 99285; J1650; J1940; A4315; G0480

== ENCOUNTER 2023-03-09 18:23 | Inpatient (IN) | payer MEDICARE, MEDICAID ==
[~2023-03-09] VITALS: Ht 162.6 cm; Wt 68.5 kg
[~2023-03-09 18:23] MED LIST changes: -ALBU6.7H15 INH; -ASPI-1406 PO; -ATOR-2 PO; -DAPA10TA PO; -FAMO-287 MT; +FAMO20TA8 PO; +FURO40TA5 PO; -FURO80TA87 MT; +LEVO50TA PO; +LIP40 PO; +LISI2.5T47 PO; +MONT-46 PO; -NITR0.4T49 SL; +ONDA4TAB50 PO; +POTA20TA30 PO; -SACU1TAB PO; -SYN150 PO
[2023-03-09] MEDS ORDERED: FUROSEMIDE 40MG/4ML VIAL IV ONE (20:45)
[2023-03-09 21:11] LABS: BASOPHILS % 1.1 % (0.0-2.0); EOSINOPHILS % 0.3 % (0.0-5.0); HEMATOCRIT. 32.6 % (36.0-48.0); HEMOGLOBIN. 10.7 g/dL (12.0-16.0); LYMPHOCYTES % 17.8 % (20.0-50.0); MEAN CORPUSCULAR HEMOGLOBIN 32.9 pg (28.0-32.0); MEAN PLATELET VOLUME 8.3 fl (7.4-10.4); NEUTROPHILS % 72.8 % (40.0-76.0); PLATELET 217 x1000/uL (130-400); RED BLOOD CELL COUNT 3.26 mill/uL (4.2-5.4); RED CELL DISTRIBUTION WIDTH 15.9 % (11.6-14.6)
[2023-03-09 21:16] LABS: CHLORIDE 108 mEq/L (98-107)
[2023-03-09 23:57] VITALS: BP 135/84; PULSE 72; RESP 17; TEMP 97.7
[2023-03-10] MEDS ORDERED: IPRATROPIUM/ALBUTEROL 0.5-3(2.5)MG/3ML NEB HHN PRN (01:30)
[2023-03-10 04:00] VITALS: BP 129/78; PULSE 60; RESP 17; TEMP 97.8
[2023-03-10 06:34] LABS: EOSINOPHILS % 0.6 % (0.0-5.0); HEMATOCRIT. 32.9 % (36.0-48.0); HEMOGLOBIN. 10.7 g/dL (12.0-16.0); LYMPHOCYTES % 27.2 % (20.0-50.0); MEAN PLATELET VOLUME 8.5 fl (7.4-10.4); MONOCYTES % 9.5 % (2.0-8.0); NEUTROPHILS % 61.7 % (40.0-76.0); PLATELET 215 x1000/uL (130-400); RED BLOOD CELL COUNT 3.26 mill/uL (4.2-5.4); RED CELL DISTRIBUTION WIDTH 16.3 % (11.6-14.6)
[2023-03-10] MEDS: LEVOTHYROXINE SODIUM 50MCG TABLET PO SCH (06:36)
[2023-03-10 08:00] VITALS: BP 131/91; PULSE 69; RESP 18; TEMP 97.8
[2023-03-10] MEDS ORDERED: FUROSEMIDE 100MG/10ML VIAL IVP SCH (09:00)
[2023-03-10] MEDS: CARVEDILOL 3.125 MG TABLET PO SCH ×2 (09:08→21:00)
[2023-03-10] MEDS: LISINOPRIL 20MG TABLET PO SCH (09:08)
[2023-03-10] MEDS ORDERED: METOLAZONE 2.5MG TABLET PO NR (10:45)
[2023-03-10] MEDS: PANTOT AC/MIN OIL/PET HY-PHL OINT (AQUAPHOR) TOP SCH (11:37)
[2023-03-10 12:00] VITALS: BP 128/86; PULSE 68; RESP 22; TEMP 97.5
[2023-03-10] MEDS: ACETAMINOPHEN 325MG TABLET PO PRN (15:21)
[2023-03-10 16:00] VITALS: PULSE 68; RESP 20
[2023-03-10] MEDS: MONTELUKAST SODIUM 10MG TABLET PO SCH (18:22)
[2023-03-10 20:00] VITALS: BP 118/67; PULSE 69; RESP 17; TEMP 98.7
[2023-03-10] MEDS ORDERED: FUROSEMIDE 100MG/10ML VIAL IV SCH (21:00)
[2023-03-10] MEDS: ATORVASTATIN CALCIUM 40MG TABLET PO SCH (21:00)
[2023-03-10] MEDS ORDERED: FUROSEMIDE 40MG/4ML VIAL IVP SCH (21:00)
[2023-03-10] MEDS: FUROSEMIDE 100MG/10ML VIAL IV SCH (21:00)
[2023-03-11] VITALS: BP 120/80; PULSE 70; RESP 17; TEMP 98.6
[2023-03-11 04:00] VITALS: BP 123/79; PULSE 65; RESP 17; TEMP 98.6
[2023-03-11] MEDS: LEVOTHYROXINE SODIUM 50MCG TABLET PO SCH (06:09)
[2023-03-11 08:00] VITALS: PULSE 67; RESP 18; TEMP 97.1
[2023-03-11] MEDS: LISINOPRIL 20MG TABLET PO SCH (09:00)
[2023-03-11] MEDS: CARVEDILOL 3.125 MG TABLET PO SCH ×2 (09:00→20:49)
[2023-03-11] MEDS: FUROSEMIDE 100MG/10ML VIAL IV SCH ×2 (09:53→20:49)
[2023-03-11] MEDS: PANTOT AC/MIN OIL/PET HY-PHL OINT (AQUAPHOR) TOP SCH (09:53)
[2023-03-11 12:00] VITALS: PULSE 69; RESP 16
[2023-03-11 16:00] VITALS: PULSE 75; RESP 21
[2023-03-11] MEDS: MONTELUKAST SODIUM 10MG TABLET PO SCH (17:00)
[2023-03-11 20:00] VITALS: BP 119/73; PULSE 69; RESP 17; TEMP 97.4
[2023-03-11] MEDS: ATORVASTATIN CALCIUM 40MG TABLET PO SCH (20:49)
[2023-03-12 04:00] VITALS: BP 122/73; PULSE 73; RESP 17; TEMP 98.2
[2023-03-12] MEDS: LEVOTHYROXINE SODIUM 50MCG TABLET PO SCH (06:06)
[2023-03-12 08:00] VITALS: PULSE 69; RESP 11
[2023-03-12] MEDS: FUROSEMIDE 100MG/10ML VIAL IV SCH ×3 (09:00→22:01)
[2023-03-12] MEDS: PANTOT AC/MIN OIL/PET HY-PHL OINT (AQUAPHOR) TOP SCH (09:23)
[2023-03-12] MEDS: LISINOPRIL 20MG TABLET PO SCH (09:23)
[2023-03-12] MEDS: CARVEDILOL 3.125 MG TABLET PO SCH ×2 (09:23→22:02)
[2023-03-12] MEDS ORDERED: METOLAZONE 2.5MG TABLET PO SCH (10:00)
[2023-03-12 12:00] VITALS: PULSE 69; RESP 21
[2023-03-12 16:00] VITALS: BP 117/80; PULSE 63; RESP 18; TEMP 97.7
[2023-03-12] MEDS: MONTELUKAST SODIUM 10MG TABLET PO SCH (16:34)
[2023-03-12 20:00] VITALS: BP 121/80; PULSE 69; RESP 18; TEMP 95.9
[2023-03-12] MEDS: ATORVASTATIN CALCIUM 40MG TABLET PO SCH (22:01)
[2023-03-13] VITALS: BP 88/41; PULSE 65; RESP 18; TEMP 97.5
[2023-03-13 04:00] VITALS: BP 122/61; PULSE 65; RESP 19; TEMP 98.2
[2023-03-13] MEDS: LEVOTHYROXINE SODIUM 50MCG TABLET PO SCH ×2 (07:39→09:21)
[2023-03-13 08:00] VITALS: BP 95/69; PULSE 86; RESP 19; TEMP 95.9
[2023-03-13] MEDS: CARVEDILOL 3.125 MG TABLET PO SCH ×2 (09:00→21:00)
[2023-03-13] MEDS: FUROSEMIDE 100MG/10ML VIAL IV SCH ×2 (09:21→17:26)
[2023-03-13] MEDS: LISINOPRIL 20MG TABLET PO SCH (09:21)
[2023-03-13] MEDS: PANTOT AC/MIN OIL/PET HY-PHL OINT (AQUAPHOR) TOP SCH (09:22)
[2023-03-13] MEDS ORDERED: METOLAZONE 2.5MG TABLET PO NR (10:00)
[2023-03-13 12:00] VITALS: BP 125/68; PULSE 57; RESP 19; TEMP 98.4
[2023-03-13 16:00] VITALS: BP 130/67; PULSE 61; RESP 20; TEMP 97.9
[2023-03-13] MEDS: MONTELUKAST SODIUM 10MG TABLET PO SCH (17:00)
[2023-03-13 20:00] VITALS: BP 142/77; PULSE 64; RESP 18; TEMP 96.1
[2023-03-13] MEDS: ATORVASTATIN CALCIUM 40MG TABLET PO SCH (21:00)
[2023-03-14 04:00] VITALS: BP 88/52; PULSE 75; RESP 16; TEMP 97.4
[2023-03-14] MEDS: FUROSEMIDE 100MG/10ML VIAL IV SCH (07:00)
[2023-03-14] MEDS: CARVEDILOL 3.125 MG TABLET PO SCH ×2 (09:00→21:00)
[2023-03-14] MEDS: PANTOT AC/MIN OIL/PET HY-PHL OINT (AQUAPHOR) TOP SCH (09:00)
[2023-03-14] MEDS: LISINOPRIL 20MG TABLET PO SCH (09:40)
[2023-03-14] MEDS: MONTELUKAST SODIUM 10MG TABLET PO SCH (17:00)
[2023-03-14 20:00] VITALS: BP 134/63; PULSE 61; RESP 18; TEMP 97.6
[2023-03-14] MEDS: ATORVASTATIN CALCIUM 40MG TABLET PO SCH (21:00)
[2023-03-15] VITALS: BP 138/75; PULSE 75; RESP 19; TEMP 98.4
[2023-03-15] MEDS: ACETAMINOPHEN 325MG TABLET PO PRN (03:58)
[2023-03-15 04:00] VITALS: BP 124/64; PULSE 69; RESP 18; TEMP 97.5
[2023-03-15] MEDS ORDERED: DIPHENHYDRAMINE 50MG CAPSULE PO PRN (06:15)
[2023-03-15] MEDS: LEVOTHYROXINE SODIUM 50MCG TABLET PO SCH (06:27)
[2023-03-15] MEDS: FUROSEMIDE 100MG/10ML VIAL IV SCH (07:00)
[2023-03-15] MEDS: CARVEDILOL 3.125 MG TABLET PO SCH ×2 (09:00→21:00)
[2023-03-15] MEDS: PANTOT AC/MIN OIL/PET HY-PHL OINT (AQUAPHOR) TOP SCH (09:00)
[2023-03-15] MEDS: LISINOPRIL 20MG TABLET PO SCH (09:00)
[2023-03-15] MEDS ORDERED: COR3 PO (11:59)
[2023-03-15] MEDS ORDERED: LISI20TA31 PO (11:59)
[2023-03-15] MEDS ORDERED: FURO-151 MT (11:59)
[2023-03-15] MEDS ORDERED: LEVO50TA8 PO (11:59)
[2023-03-15] MEDS ORDERED: LIP40 PO (11:59)
[2023-03-15 20:00] VITALS: BP 139/77; PULSE 68; RESP 18; TEMP 99.3
[2023-03-15] MEDS: ATORVASTATIN CALCIUM 40MG TABLET PO SCH (20:08)
[2023-03-16] VITALS: BP 127/64; PULSE 65; RESP 20; TEMP 97.5
[2023-03-16 04:00] VITALS: BP 123/74; PULSE 67; RESP 18; TEMP 97.9
[2023-03-16] MEDS: FUROSEMIDE 100MG/10ML VIAL IV SCH ×2 (06:41→18:00)
[2023-03-16] MEDS: LEVOTHYROXINE SODIUM 50MCG TABLET PO SCH (06:43)
[2023-03-16 08:00] VITALS: BP 139/79; PULSE 61; RESP 18; TEMP 97.4
[2023-03-16] MEDS: PANTOT AC/MIN OIL/PET HY-PHL OINT (AQUAPHOR) TOP SCH (09:00)
[2023-03-16] MEDS: ASPIRIN 81MG TABLET PO SCH (11:40)
[2023-03-16] MEDS: CARVEDILOL 3.125 MG TABLET PO SCH ×2 (11:40→20:38)
[2023-03-16] MEDS: LISINOPRIL 20MG TABLET PO SCH (11:40)
[2023-03-16 12:00] VITALS: BP 133/65; PULSE 60; RESP 18; TEMP 97
[2023-03-16 16:00] VITALS: BP 139/77; PULSE 68; RESP 18; TEMP 97.2
[2023-03-16] MEDS: MONTELUKAST SODIUM 10MG TABLET PO SCH ×2 (17:00→17:34)
[2023-03-16 20:00] VITALS: BP 129/69; PULSE 68; RESP 18; TEMP 97.9
[2023-03-16] MEDS: ATORVASTATIN CALCIUM 40MG TABLET PO SCH (20:38)
[2023-03-17] VITALS: BP 133/73; PULSE 70; RESP 20; TEMP 97.5
[2023-03-17 04:00] VITALS: BP 138/72; PULSE 72; RESP 18; TEMP 97.5
[2023-03-17] MEDS: FUROSEMIDE 100MG/10ML VIAL IV SCH ×2 (07:00→17:18)
[2023-03-17 08:00] VITALS: BP 125/64; PULSE 65; RESP 18; TEMP 96.9
[2023-03-17] MEDS: LEVOTHYROXINE SODIUM 50MCG TABLET PO SCH (08:55)
[2023-03-17] MEDS: ASPIRIN 81MG TABLET PO SCH (08:55)
[2023-03-17] MEDS: LISINOPRIL 20MG TABLET PO SCH (08:56)
[2023-03-17] MEDS: CARVEDILOL 3.125 MG TABLET PO SCH ×2 (08:57→20:18)
[2023-03-17] MEDS: PANTOT AC/MIN OIL/PET HY-PHL OINT (AQUAPHOR) TOP SCH (08:58)
[2023-03-17 12:00] VITALS: BP 117/68; PULSE 63; RESP 19; TEMP 97
[2023-03-17 16:00] VITALS: BP 126/59; PULSE 62; RESP 18; TEMP 97.9
[2023-03-17] MEDS: MONTELUKAST SODIUM 10MG TABLET PO SCH (17:16)
[2023-03-17 20:00] VITALS: BP 129/66; PULSE 62; RESP 18; TEMP 97.7
[2023-03-17] MEDS: ATORVASTATIN CALCIUM 40MG TABLET PO SCH (20:18)
[2023-03-18] VITALS: BP 111/60; PULSE 60; RESP 17; TEMP 97.9
[2023-03-18] MEDS: FUROSEMIDE 100MG/10ML VIAL IV SCH (07:00)
[2023-03-18] MEDS: LEVOTHYROXINE SODIUM 50MCG TABLET PO SCH (07:20)
[2023-03-18] MEDS: PANTOT AC/MIN OIL/PET HY-PHL OINT (AQUAPHOR) TOP SCH (09:22)
[2023-03-18] MEDS: ASPIRIN 81MG TABLET PO SCH (09:28)
[2023-03-18] MEDS: CARVEDILOL 3.125 MG TABLET PO SCH (09:28)
[2023-03-18] MEDS: LISINOPRIL 20MG TABLET PO SCH (09:29)
[2023-03-18 12:00] VITALS: BP 133/67; PULSE 68; RESP 19; TEMP 97
[2023-03-18] MEDS ORDERED: HYDROCODONE/ACETAMINOPHEN 10/325MG TABLET PO PRN (16:15)
[2023-03-18] MEDS ORDERED: LORAZEPAM 2MG/ML CPJ IM PRN (16:15)
[2023-03-18] MEDS: ACETAMINOPHEN 325MG TABLET PO PRN (17:01)
[2023-03-18 17:13] VITALS: BP 133/67; PULSE 68; TEMP 97; O2SAT 99
== END 2023-03-18 17:50 | DRG 291 ==
LOC: ER 18:23 → 3WST 21:21 → ENRESERV 22:17 → 6EST 03-12 12:39
PROVIDERS: ADMIT Internal Medicine; ATTEND Internal Medicine
DX: I11.0 Hypertensive heart disease with heart failure (principal); I50.23 Acute on chronic systolic (congestive) heart failure; N17.0 Acute kidney failure with tubular necrosis; I47.20 Ventricular tachycardia, unspecified; I42.0 Dilated cardiomyopathy; I34.0 Nonrheumatic mitral (valve) insufficiency; J44.9 Chronic obstructive pulmonary disease, unspecified; I25.10 Atherosclerotic heart disease of native coronary artery without angina pectoris; L85.3 Xerosis cutis; I44.7 Left bundle-branch block, unspecified; I27.21 Secondary pulmonary arterial hypertension; M48.061 Spinal stenosis, lumbar region without neurogenic claudication; M54.30 Sciatica, unspecified side; E03.9 Hypothyroidism, unspecified; E78.00 Pure hypercholesterolemia, unspecified; I71.23 Aneurysm of the descending thoracic aorta, without rupture; I73.9 Peripheral vascular disease, unspecified; D64.9 Anemia, unspecified; Z91.199 Patient's noncompliance with other medical treatment and regimen due to unspecified reason; Z86.73 Personal history of transient ischemic attack (TIA), and cerebral infarction without residual deficits; Z91.148 Patient's other noncompliance with medication regimen for other reason; Z91.041 Radiographic dye allergy status; Z79.899 Other long term (current) drug therapy; Z79.01 Long term (current) use of anticoagulants
CPT/HCPCS: 36415; 71045; 80048; 80053; 83036; 83880; 84443; 84484; 85025; 93005; 93306; 97161; 99285; J1940; Q0163

== ENCOUNTER 2023-03-31 20:15 | Emergency (ER) | payer MEDICARE, MEDICAID ==
[~2023-03-31] VITALS: Ht 165.1 cm; Wt 60.0 kg
[~2023-03-31 20:15] MED LIST changes: +CLOP-31 PO; +FURO-151 MT; -FURO40TA5 PO; +LEVO50TA8 PO; -LISI2.5T47 PO; +LISI20TA31 PO
[2023-03-31 20:53] VITALS: BP 152/93; PULSE 72; RESP 18; TEMP 98.7; O2SAT 100
== END 2023-03-31 21:14 | disposition home or self-care (01) ==
LOC: ER 20:15
DX: R07.9 Chest pain, unspecified (principal); J44.9 Chronic obstructive pulmonary disease, unspecified; I50.9 Heart failure, unspecified; Z88.8 Allergy status to other drugs, medicaments and biological substances
CPT/HCPCS: 99281

== ENCOUNTER 2023-04-02 04:08 | Emergency (ER) | payer MEDICARE, MEDICAID ==
[~2023-04-02] VITALS: Ht 165.1 cm; Wt 64.0 kg
[~2023-04-02 04:08] MED LIST changes: -FAMO20TA8 PO; -LEVO50TA PO; -ONDA4TAB50 PO; -POTA20TA30 PO
[2023-04-02 04:12] VITALS: BP 140/76; PULSE 63; RESP 16; TEMP 98.7; O2SAT 99
[2023-04-02 06:15] LABS: BASOPHILS % 0.5 % (0.0-2.0); DIFFERENTIAL COMMENT 0; EOSINOPHILS % 0.9 % (0.0-5.0); HEMATOCRIT. 38.1 % (36.0-48.0); HEMOGLOBIN. 12.1 g/dL (12.0-16.0); LYMPHOCYTES % 7.3 % (20.0-50.0); MEAN CORPUSCULAR HEMOGLOBIN 32.4 pg (28.0-32.0); MEAN CORPUSCULAR HGB CONC 31.8 g/dL (31.0-37.0); MEAN CORPUSCULAR VOLUME 101.9 fL (81.0-99.0); MEAN PLATELET VOLUME 8.4 fl (7.4-10.4); MONOCYTES % 8.7 % (2.0-8.0); NEUTROPHILS % 82.6 % (40.0-76.0); PLATELET 268 x1000/uL (130-400); RED BLOOD CELL COUNT 3.74 mill/uL (4.2-5.4); WHITE BLOOD COUNT 9.9 x1000/uL (4.5-11.0)
[2023-04-02 06:27] LABS: CHLORIDE 107 mEq/L (98-107); INDEX HEMOLYSI 1 (1-3); INDEX ICTERIC 1 (1-4); INDEX LIPEMIC 1 (1-3); POTASSIUM 4.6 mEq/L (3.5-5.1); SODIUM 141 mEq/L (136-145)
[2023-04-02 06:36] LABS: ALANINE AMINOTRANSFERASE 59 IU/L (13-61); ALBUMIN 3.5 g/dL (3.4-5.0); ASPARTATE AMINOTRANSFERASE 44 IU/L (15-37); CALCIUM 9.1 mg/dL (8.5-10.1); CARBON DIOXIDE 28 mEq/L (21-32); CREATININE 1.2 mg/dL (0.6-1.3); GLUCOSE 85 mg/dL (70-105); PROTEIN TOTAL 7.2 g/dL (6.0-8.3); UREA NITROGEN BLOOD 60 mg/dL (7-21)
[2023-04-02 06:41] LABS: TROPONIN I HIGH SENSITIVITY 522 ng/L (<54)
== END 2023-04-02 10:51 | disposition home or self-care (01) ==
LOC: ER 04:08
DX: R53.1 Weakness (principal); R42 Dizziness and giddiness; I50.9 Heart failure, unspecified; J44.9 Chronic obstructive pulmonary disease, unspecified; Z79.899 Other long term (current) drug therapy
CPT/HCPCS: 36415; 80053; 84484; 85025; 93005; 99284

== ENCOUNTER 2023-04-02 10:50 | Emergency (ER) | payer MEDICARE, MEDICAID ==
[~2023-04-02] VITALS: Ht 152.4 cm; Wt 45.0 kg
[2023-04-02 11:04] VITALS: BP 159/93; PULSE 69; RESP 20; TEMP 98.1; O2SAT 96
== END 2023-04-02 12:08 | disposition home or self-care (01) ==
LOC: ER 10:50
DX: I50.9 Heart failure, unspecified (principal); J44.9 Chronic obstructive pulmonary disease, unspecified; Z79.899 Other long term (current) drug therapy
CPT/HCPCS: 93005; 99283

== ENCOUNTER 2025-01-16 05:47 | Inpatient (IN) | payer MEDICARE, MEDICAID ==
[~2025-01-16] VITALS: Ht 160 cm; Wt 58.1 kg
[2025-01-16 05:50] VITALS: O2SAT 98
[2025-01-16] MEDS: ACETAMINOPHEN 325MG TABLET PO ONE (06:32)
[2025-01-16 08:10] LABS: BASOPHILS % 1.3 % (0.0-2.0); EOSINOPHILS % 1.9 % (0.0-5.0); HEMATOCRIT. 36.9 % (36.0-48.0); HEMOGLOBIN. 11.5 g/dL (12.0-16.0); LYMPHOCYTES % 17.9 % (20.0-50.0); MEAN CORPUSCULAR HEMOGLOBIN 30.2 pg (28.0-32.0); MEAN CORPUSCULAR HGB CONC 31.3 g/dL (31.0-37.0); MEAN CORPUSCULAR VOLUME 96.4 fL (81.0-99.0); MEAN PLATELET VOLUME 8.1 fl (7.4-10.4); MONOCYTES % 5.4 % (2.0-8.0); NEUTROPHILS % 73.5 % (40.0-76.0); PLATELET 215 x1000/uL (130-400); RED BLOOD CELL COUNT 3.83 mill/uL (4.2-5.4); RED CELL DISTRIBUTION WIDTH 18.6 % (11.6-14.6); WHITE BLOOD COUNT 6.2 x1000/uL (4.5-11.0)
[2025-01-16 08:28] LABS: CHLORIDE 109 mEq/L (98-107); POTASSIUM 5.2 mEq/L (3.5-5.1); SODIUM 143 mEq/L (136-145)
[2025-01-16 08:29] LABS: CALCIUM 9.4 mg/dL (8.7-10.4); CARBON DIOXIDE 26 mEq/L (21-32)
[2025-01-16 08:34] LABS: CREATININE 1.3 mg/dL (0.6-1.0); GLUCOSE 81 mg/dL (70-105); UREA NITROGEN BLOOD 46 mg/dL (9-23)
[2025-01-16 09:07] LABS: TROPONIN I HIGH SENSITIVITY 267 ng/L (3.0-34)
[2025-01-16 09:30] VITALS: BP 117/58; PULSE 66; RESP 18; TEMP 36.8
[2025-01-16] MEDS ORDERED: GUAIFENESIN 200MG/10ML SUGAR FREE UDC PO PRN (09:45)
[2025-01-16] MEDS ORDERED: DIPHENHYDRAMINE 50MG/ML VIAL IV PRN (09:45)
[2025-01-16] MEDS ORDERED: ACETAMINOPHEN 325MG TABLET PO PRN (09:45)
[2025-01-16] MEDS ORDERED: CLONIDINE 0.1MG TABLET PO PRN (09:45)
[2025-01-16] MEDS ORDERED: MAGNESIUM/ALUMINUM HYDROXIDE/SIMETHICONE 30ML UDC PO PRN (09:45)
[2025-01-16] MEDS ORDERED: IPRATROPIUM/ALBUTEROL 0.5-3(2.5)MG/3ML NEB HHN PRN (09:45)
[2025-01-16] MEDS ORDERED: DOCUSATE SODIUM 100MG CAPSULE PO PRN (09:45)
[2025-01-16] MEDS ORDERED: ONDANSETRON HCL 4MG/2ML INJ IV PRN (09:45)
[2025-01-16 10:00] VITALS: BP 117/58; PULSE 66; RESP 18; TEMP 36.8
[2025-01-16 12:00] VITALS: BP 130/73; PULSE 70; RESP 14; TEMP 36.5; O2SAT 96
[2025-01-16] MEDS: LEVOTHYROXINE SODIUM 150MCG TABLET PO SCH (13:38)
[2025-01-16] MEDS: DIVALPROEX SODIUM 125MG SPRINKLE CAPSULE PO SCH (13:51)
[2025-01-16] MEDS: ASPIRIN 81MG TABLET PO SCH (13:52)
[2025-01-16] MEDS: CLOPIDOGREL 75MG TABLET PO SCH (13:52)
[2025-01-16] MEDS: FUROSEMIDE 40MG/4ML VIAL IVP SCH ×2 (13:52→18:33)
[2025-01-16 13:58] LABS: TROPONIN I HIGH SENSITIVITY 270 ng/L (3.0-34)
[2025-01-16] MEDS: ALLOPURINOL 100 MG TABLET PO SCH (15:42)
[2025-01-16 16:00] VITALS: BP 135/68; PULSE 72; RESP 14; TEMP 36.6; O2SAT 96
[2025-01-16] MEDS: ENOXAPARIN 40MG/0.4ML SYR SUBCUT SCH (16:00)
[2025-01-16] MEDS: PANTOPRAZOLE SODIUM 40 MG/VIAL IV SCH (18:29)
[2025-01-16 20:00] VITALS: PULSE 78
[2025-01-16] MEDS: ATORVASTATIN CALCIUM 40MG TABLET PO SCH (20:05)
[2025-01-16] MEDS ORDERED: CARBAMAZEPINE 200MG TABLET PO SCH (21:00)
[2025-01-17] VITALS: PULSE 84
[2025-01-17 04:00] VITALS: BP 117/66; PULSE 64; RESP 18; TEMP 36.3; O2SAT 97
[2025-01-17 08:00] VITALS: BP 140/70; PULSE 70; RESP 14; TEMP 36.6
[2025-01-17 12:00] VITALS: BP 128/72; PULSE 70; RESP 20; TEMP 36.3; O2SAT 100
[2025-01-17 16:00] VITALS: BP 148/86; PULSE 74; RESP 18; TEMP 36.8; O2SAT 98
[2025-01-18] MEDS: ACETAMINOPHEN 325MG TABLET PO PRN (01:01)
[2025-01-18 04:00] VITALS: BP 107/78; PULSE 78; RESP 16; TEMP 36.2
[2025-01-18 08:00] VITALS: BP 109/77; PULSE 71; RESP 16; TEMP 36.3
== END 2025-01-18 19:00 | disposition left against medical advice (07) | DRG 280 ==
LOC: ER 05:47 → 5WST 06:34 → ENRESERV 06:57
PROVIDERS: ADMIT Internal Medicine; ATTEND Internal Medicine
DX: I21.4 Non-ST elevation (NSTEMI) myocardial infarction (principal); I50.23 Acute on chronic systolic (congestive) heart failure; I42.9 Cardiomyopathy, unspecified; I11.0 Hypertensive heart disease with heart failure; I25.10 Atherosclerotic heart disease of native coronary artery without angina pectoris; E78.5 Hyperlipidemia, unspecified; J44.89 Other specified chronic obstructive pulmonary disease; E03.9 Hypothyroidism, unspecified; D64.9 Anemia, unspecified; M54.9 Dorsalgia, unspecified; N28.9 Disorder of kidney and ureter, unspecified; I08.1 Rheumatic disorders of both mitral and tricuspid valves; M79.10 Myalgia, unspecified site; Z99.3 Dependence on wheelchair; I25.2 Old myocardial infarction; Z91.041 Radiographic dye allergy status
CPT/HCPCS: 36415; 71045; 73630; 80048; 83880; 84484; 85025; 93005; 93970; 97162; 99285; A4606; J1650; J1940; J2470

== ENCOUNTER 2025-01-18 22:45 | Inpatient (IN) | payer MEDICARE, MEDICAID ==
[~2025-01-18] VITALS: Ht 160 cm; Wt 62.6 kg
[2025-01-18 23:05] VITALS: O2SAT 96
[2025-01-19] MEDS ORDERED: FUROSEMIDE 40MG/4ML VIAL IV ONE
[2025-01-19] MEDS: ASPIRIN 81MG TABLET PO ONE (00:08)
[2025-01-19 02:02] LABS: BASOPHILS % 0.8 % (0.0-2.0); EOSINOPHILS % 1.3 % (0.0-5.0); HEMATOCRIT. 35.4 % (36.0-48.0); HEMOGLOBIN. 11.2 g/dL (12.0-16.0); LYMPHOCYTES % 22.2 % (20.0-50.0); MEAN CORPUSCULAR HGB CONC 31.7 g/dL (31.0-37.0); MEAN CORPUSCULAR VOLUME 94.6 fL (81.0-99.0); MEAN PLATELET VOLUME 8.5 fl (7.4-10.4); MONOCYTES % 6.3 % (2.0-8.0); NEUTROPHILS % 69.4 % (40.0-76.0); PLATELET 243 x1000/uL (130-400); RED BLOOD CELL COUNT 3.74 mill/uL (4.2-5.4); RED CELL DISTRIBUTION WIDTH 18.6 % (11.6-14.6)
[2025-01-19 02:06] LABS: POTASSIUM 5.1 mEq/L (3.5-5.1)
[2025-01-19 02:07] LABS: INR 1.2; PARTIAL THROMBOPLASTIN TIME 33.3 sec (23.4-31.0); PROTHROMBIN TIME 12.9 sec (9.6-11.0)
[2025-01-19 02:12] LABS: CREATININE 1.3 mg/dL (0.6-1.0)
[2025-01-19] MEDS ORDERED: ASPIRIN 81MG TABLET PO ONE (02:30)
[2025-01-19] MEDS: ASPIRIN 81MG TABLET PO NR (06:27)
[2025-01-19] MEDS: FUROSEMIDE 40MG/4ML VIAL IV NR (06:28)
[2025-01-19] MEDS ORDERED: IPRATROPIUM/ALBUTEROL 0.5-3(2.5)MG/3ML NEB NEB PRN (07:00)
[2025-01-19] MEDS ORDERED: MAGNESIUM/ALUMINUM HYDROXIDE/SIMETHICONE 30ML UDC PO PRN (07:00)
[2025-01-19] MEDS ORDERED: ONDANSETRON HCL 4MG/2ML INJ IV PRN (07:00)
[2025-01-19] MEDS ORDERED: GUAIFENESIN 200MG/10ML SUGAR FREE UDC PO PRN (07:00)
[2025-01-19] MEDS ORDERED: ACETAMINOPHEN 325MG TABLET PO PRN ×2 (07:00)
[2025-01-19 08:03] VITALS: BP 132/90; PULSE 78; RESP 20; TEMP 37.1; O2SAT 98
[2025-01-19] MEDS: ENOXAPARIN 40MG/0.4ML SYR SUBCUT SCH (10:12)
[2025-01-19 12:00] VITALS: BP 125/85; PULSE 84; RESP 18; TEMP 36.8; O2SAT 97
[2025-01-19 16:00] VITALS: BP 127/68; PULSE 81; RESP 18; TEMP 36.8
[2025-01-19 18:36] VITALS: BP 127/68; PULSE 81; RESP 18; TEMP 36.8
[2025-01-19] MEDS: FAMOTIDINE 20MG TABLET PO SCH (21:00)
[2025-01-19] MEDS: CARVEDILOL 3.125 MG TABLET PO SCH (21:00)
[2025-01-19] MEDS: ATORVASTATIN CALCIUM 40MG TABLET PO SCH (21:00)
[2025-01-20] VITALS: PULSE 79; RESP 18
[2025-01-20] LABS: FERRITIN 72 ng/mL (10-291); FOLIC ACID (FOLATE) SERUM > 20.00 ng/mL (>5.38); VITAMIN B12 SERUM 791 pg/mL (211-911)
[2025-01-20 04:00] VITALS: PULSE 80; RESP 20
[2025-01-20] MEDS: LEVOTHYROXINE SODIUM 150MCG TABLET PO SCH (06:50)
[2025-01-20 08:00] VITALS: PULSE 80; RESP 18; TEMP 36.7; O2SAT 22
[2025-01-20] MEDS: ASPIRIN 81MG TABLET PO SCH (09:00)
[2025-01-20] MEDS: CLOPIDOGREL 75MG TABLET PO SCH (09:00)
[2025-01-20] MEDS: FUROSEMIDE 40MG/4ML VIAL IVP SCH (09:00)
[2025-01-29] MEDS ORDERED: DIVA-73 PO (13:17)
[2025-01-29] MEDS ORDERED: CARB200T6 PO (13:17)
[2025-01-29] MEDS ORDERED: GABA-1180 PO (13:17)
[2025-01-29] MEDS ORDERED: BACL5TAB PO (13:17)
[2025-01-29] MEDS ORDERED: FURO40TA5 PO (13:17)
[2025-01-29] MEDS ORDERED: LISI-186 PO (13:17)
[2025-01-29] MEDS ORDERED: ATOR-2 PO (13:17)
[2025-01-29] MEDS ORDERED: LEVO150T8 PO (13:17)
[2025-02-27] MEDS ORDERED: LEVO100T9 PO (16:19)
[2025-02-27] MEDS ORDERED: ALLO100T PO (16:19)
[2025-02-27] MEDS ORDERED: LOSA25TA26 PO (16:19)
[2025-02-27] MEDS ORDERED: BENZ200C52 PO (16:19)
[2025-02-27] MEDS ORDERED: BUME2TAB7 PO (16:19)
== END 2025-01-20 15:00 | disposition left against medical advice (07) | DRG 194 ==
LOC: ER 22:45 → EDBEDREQ 01-19 00:19 → 3WST 01-19 02:27 → EDBEDREQ 01-19 02:39 → ENRESERV 01-19 02:49
PROVIDERS: ADMIT Internal Medicine; ATTEND Internal Medicine
DX: I13.0 Hypertensive heart and chronic kidney disease with heart failure and stage 1 through stage 4 chronic kidney disease, or unspecified chronic kidney disease (principal); I21.A1 Myocardial infarction type 2; I42.9 Cardiomyopathy, unspecified; R60.0 Localized edema; I50.23 Acute on chronic systolic (congestive) heart failure; N17.9 Acute kidney failure, unspecified; I50.22 Chronic systolic (congestive) heart failure; R06.02 Shortness of breath; I45.10 Unspecified right bundle-branch block; D64.9 Anemia, unspecified; E03.9 Hypothyroidism, unspecified; R09.89 Other specified symptoms and signs involving the circulatory and respiratory systems; I25.10 Atherosclerotic heart disease of native coronary artery without angina pectoris; I71.9 Aortic aneurysm of unspecified site, without rupture; E78.5 Hyperlipidemia, unspecified; G89.29 Other chronic pain; N18.9 Chronic kidney disease, unspecified; J44.89 Other specified chronic obstructive pulmonary disease; Z53.29 Procedure and treatment not carried out because of patient's decision for other reasons; I08.1 Rheumatic disorders of both mitral and tricuspid valves; Z59.01 Sheltered homelessness; Z79.02 Long term (current) use of antithrombotics/antiplatelets; Z91.148 Patient's other noncompliance with medication regimen for other reason; Z99.3 Dependence on wheelchair; Z91.041 Radiographic dye allergy status
CPT/HCPCS: 36415; 71045; 80048; 82607; 82728; 82746; 83880; 84484; 85025; 93005; 99285; A4606; J1650; J1940

== ENCOUNTER 2025-02-28 22:02 | Inpatient (IN) | payer MEDICARE, MEDICAID ==
[~2025-02-28] VITALS: Ht 152.4 cm; Wt 64.0 kg
[~2025-02-28 22:02] MED LIST changes: +ALLO100T PO; +ATOR-2 PO; +BACL5TAB PO; +BENZ200C52 PO; +BUME2TAB7 PO; +CARB200T6 PO; +DIVA-73 PO; -FURO-151 MT; +FURO40TA5 PO; +GABA-1180 PO; +LEVO100T9 PO; +LEVO150T8 PO; -LEVO50TA8 PO; -LIP40 PO; +LISI-186 PO; -LISI20TA31 PO; +LOSA25TA26 PO
[2025-02-28 22:10] VITALS: O2SAT 98
[2025-03-01] MEDS: OLANZAPINE 10 MG/VIAL IM ONE (03:33)
[2025-03-01 11:53] LABS: BASOPHILS % 0.7 % (0.0-2.0); EOSINOPHILS % 1.0 % (0.0-5.0); HEMATOCRIT. 41.3 % (36.0-48.0); HEMOGLOBIN. 12.6 g/dL (12.0-16.0); LYMPHOCYTES % 17.5 % (20.0-50.0); MEAN PLATELET VOLUME 8.3 fl (7.4-10.4); MONOCYTES % 8.1 % (2.0-8.0); NEUTROPHILS % 72.7 % (40.0-76.0); PLATELET 359 x1000/uL (130-400); RED BLOOD CELL COUNT 4.39 mill/uL (4.2-5.4); RED CELL DISTRIBUTION WIDTH 21.1 % (11.6-14.6)
[2025-03-01 12:18] LABS: CREATININE 1.6 mg/dL (0.6-1.0); UREA NITROGEN BLOOD 61.0 mg/dL (9-23)
[2025-03-01 16:00] VITALS: PULSE 66; RESP 20; TEMP 36.8; O2SAT 97
[2025-03-01] MEDS ORDERED: ACETAMINOPHEN 325MG TABLET PO PRN (16:00)
[2025-03-01] MEDS: FUROSEMIDE 40MG/4ML VIAL IVP SCH (17:15)
[2025-03-01] MEDS ORDERED: ONDANSETRON HCL 4MG/2ML INJ IV PRN (17:15)
[2025-03-01 20:00] VITALS: BP 117/74; PULSE 84; RESP 18; TEMP 36.4; O2SAT 96
[2025-03-01 20:36] VITALS: BP 112/70; PULSE 66; RESP 18; TEMP 36.9
[2025-03-01] MEDS: IPRATROPIUM/ALBUTEROL 0.5-3(2.5)MG/3ML NEB HHN SCH (20:50)
[2025-03-01] MEDS: GUAIFENESIN 200MG/10ML SUGAR FREE UDC PO PRN (22:37)
[2025-03-02] MEDS: CARVEDILOL 3.125 MG TABLET PO SCH (21:00)
[2025-03-03 08:00] VITALS: BP 122/83; PULSE 63; RESP 16; TEMP 36.1; O2SAT 95
[2025-03-03 08:29] VITALS: PULSE 86; RESP 16
[2025-03-03] MEDS: LOSARTAN 25 MG TABLET PO SCH (09:00)
[2025-03-03] MEDS: ACETAMINOPHEN 325MG TABLET PO PRN (09:50)
[2025-03-03] MEDS ORDERED: LORAZEPAM 2MG/ML UD SYRINGE IM PRN (11:30)
[2025-03-03 12:00] VITALS: BP 127/68; PULSE 71; RESP 17; TEMP 36; O2SAT 100
[2025-03-03 16:00] VITALS: BP 121/75; PULSE 67; RESP 18; TEMP 36.7; O2SAT 100
[2025-03-03] MEDS: FUROSEMIDE 40MG TABLET PO SCH (17:15)
[2025-03-03] MEDS ORDERED: FUROSEMIDE 40MG TABLET PO SCH (21:00)
[2025-03-04] MEDS ORDERED: LEVO100T9 PO (07:28)
[2025-03-04] MEDS ORDERED: GABA-1180 PO (07:29)
== END 2025-03-03 18:46 | disposition left against medical advice (07) | DRG 194 ==
LOC: ER 22:09 → 7EST 03-01 11:19 → EDBEDREQTM 03-01 11:51 → EDBEDREQ 03-01 11:51 → EDBEDREQSVC 03-01 11:52 → ENRESERV 03-01 13:02
PROVIDERS: ADMIT Internal Medicine; ATTEND Internal Medicine
DX: I11.0 Hypertensive heart disease with heart failure (principal); J44.9 Chronic obstructive pulmonary disease, unspecified; I50.23 Acute on chronic systolic (congestive) heart failure; Z59.00 Homelessness unspecified; Z53.29 Procedure and treatment not carried out because of patient's decision for other reasons; Z60.8 Other problems related to social environment; Z88.8 Allergy status to other drugs, medicaments and biological substances
CPT/HCPCS: 36415; 80048; 85025; 93005; 94070; 94640; 94664; 98960; 99285; A4606; J1940; J3490

== ENCOUNTER 2025-03-08 20:30 | Emergency (ER) | payer MEDICARE, MEDICAID ==
[~2025-03-08] VITALS: Ht 162.6 cm; Wt 59.0 kg
[~2025-03-08 20:30] MED LIST changes: -ALLO100T PO; -BACL5TAB PO; -BENZ200C52 PO; -CARB200T6 PO; -DIVA-73 PO; -FURO40TA5 PO; -LEVO150T8 PO; -LISI-186 PO; -MONT-46 PO
[2025-03-08 20:40] VITALS: O2SAT 16
[2025-03-08 20:51] VITALS: BP 119/65; PULSE 64; RESP 18; TEMP 36.9; O2SAT 100
[2025-03-09 01:13] LABS: BASOPHILS % 0.9 % (0.0-2.0); EOSINOPHILS % 1.2 % (0.0-5.0); HEMATOCRIT. 37.2 % (36.0-48.0); HEMOGLOBIN. 11.5 g/dL (12.0-16.0); LYMPHOCYTES % 17.8 % (20.0-50.0); MEAN PLATELET VOLUME 8.4 fl (7.4-10.4); MONOCYTES % 3.8 % (2.0-8.0); NEUTROPHILS % 76.3 % (40.0-76.0); PLATELET 188 x1000/uL (130-400); RED BLOOD CELL COUNT 4.01 mill/uL (4.2-5.4); RED CELL DISTRIBUTION WIDTH 20.6 % (11.6-14.6)
[2025-03-09 01:25] LABS: CREATININE 1.4 mg/dL (0.6-1.0); UREA NITROGEN BLOOD 57.0 mg/dL (9-23)
[2025-03-09] MEDS: ACETAMINOPHEN 325MG TABLET PO ONE (01:48)
== END 2025-03-09 05:03 | disposition home or self-care (01) ==
LOC: ER 20:30
DX: I10 Essential (primary) hypertension (principal); J44.9 Chronic obstructive pulmonary disease, unspecified; Z59.01 Sheltered homelessness; Z79.02 Long term (current) use of antithrombotics/antiplatelets; R68.89 Other general symptoms and signs; Z79.899 Other long term (current) drug therapy; Z88.8 Allergy status to other drugs, medicaments and biological substances; Z98.890 Other specified postprocedural states
CPT/HCPCS: 36415; 80048; 85025; 99283

== ENCOUNTER 2025-04-25 16:28 | Emergency (ER) | payer MEDICARE, MEDICAID ==
[~2025-04-25] VITALS: Ht 162.6 cm; Wt 60.0 kg
[~2025-04-25 16:28] MED LIST changes: +ASPI-1160 PO; +COR3 MT; +FURO80TA3 MT; +GABA-1180 MT; +LEVO100T9 MT; +LIP40 MT; +LOSA25TA26 MT
[2025-04-25 16:30] VITALS: BP 117/77; PULSE 103; RESP 14; O2SAT 92
[2025-04-25] MEDS ORDERED: ASPIRIN 81MG TABLET PO ONE (17:45)
[2025-04-25] MEDS ORDERED: ASPIRIN 81MG TABLET PO SCH (19:30)
== END 2025-04-25 21:24 | disposition left against medical advice (07) ==
LOC: ER 16:28 → CANBEDREQ 18:37 → ER 21:24
DX: R07.89 Other chest pain (principal); I11.0 Hypertensive heart disease with heart failure; I50.9 Heart failure, unspecified; J44.9 Chronic obstructive pulmonary disease, unspecified; Z79.899 Other long term (current) drug therapy; Z88.8 Allergy status to other drugs, medicaments and biological substances
CPT/HCPCS: 99283